=== PATIENT | female | born 1955 | race African-American/Black ===

== ENCOUNTER 2016-10-24 09:49 | Inpatient (IN) | payer OTHER ==
[~2016-10-24] VITALS: Ht 157.5 cm; Wt 63.5 kg
[~2016-10-24 09:49] MED LIST: ASPIRIN EC81 M1 PO; BETASERON0.3 M1 SC; CARBAMAZEPINE100 MG PO; COZAAR50 M1 PO; GABAPENTIN400 M2 PO; GABAPENTIN800 MG PO; GEMFIBROZIL600 MG PO; GLIPIZIDE ER10 MG PO; HYDROCHLOROTHIA25 M1 PO; LIORESAL 10MG T10 MG PO; LIPITOR10 M1 PO; METFORMIN HCL500 MG PO; METFORMIN1000 MG PO; OPANA ER40 M1 PO; OPANA ER40 MG PO; PERCOCET 325 MG1 TA2 PO; TRAMADOL HCL50 M1 PO; VICODIN5-300 PO; VITAMIN D250000 UNIT PO; ZOFRAN ODT4 M1 SL
--- NOTE | 2016-10-24 09:55 | NUR ---
61 Y/O FEMALE C/O "NOT FEELING WELL" X " A FEW DAYS". PT REPORTS GENERAL WEAKNESS, NAUSEA, DECREASED APPETITE/PO INTAKE AND DIARRHEA. STATES SHE HAS MS AND CURRENT SYMPTOMS FEEL SIMILIAR TO A FLARE UP. PT CLOSING EYES IN TRIAGE BUT RESPONDS TO QUESTIONS. STATES SHE IS JUST TIRED.
--- NOTE | 2016-10-24 10:03 | NUR ---
PT TO ROOM 2 VIA W/C. CHANGED INTO GOWN. ASSIST OF 2 TO STRETCHER. PT VERY WEAK. AWAITING EVAL. Informed waiting has been performed.
--- NOTE | 2016-10-24 10:08 | NUR ---
DR CALLE AT BEDSIDE.
[2016-10-24] MEDS ORDERED: BACLOFEN10 M1 PO (10:09)
[2016-10-24] MEDS ORDERED: CARBAMAZEPINE100 M2 PO (10:10)
[2016-10-24] MEDS ORDERED: METFORMIN HCL1000 M1 PO (10:11)
--- NOTE | 2016-10-24 10:44 | ED GENERAL ADULT ---
History of Present Illness General Chief Complaint: General Adult Stated Complaint: GEN WEAKNESS Source: patient, family, old records Exam Limitations: clinical condition Allergies Coded Allergies: NO KNOWN ALLERGIES (09/08/15) Reconcile Medications Aspirin (Ecotrin*) 81 MG TABLET.DR 1 TAB PO DAILY MENTAL HEALTH (Reported) Atorvastatin Calcium (Lipitor) 10 MG TABLET 1 TAB PO DAILY CHOLESTEROL ( Reported) Baclofen 10 MG TABLET 1 TAB PO QPM MUSCLE SPASMS (Reported) Carbamazepine 100 MG TAB.CHEW 1 TAB PO TID MS (Reported) Ergocalciferol (Vitamin D2) (Vitamin D2) 50,000 UNIT CAPSULE 1 CAP PO QMON SUPPLEMENT (Reported) Gabapentin 400 MG CAPSULE 1 CAP PO TID NERVE PAIN (Reported) Hydrochlorothiazide 25 MG TABLET 1 TAB PO DAILY DIURETIC (Reported) Interferon Beta-1b (Betaseron) (Unknown Strength) KIT (Unknown Dose) SC Q2W MS (Reported) Losartan Potassium (Cozaar) 50 MG TABLET 1 TAB PO DAILY HEART (Reported) Metformin HCl 1,000 MG TABLET 1 TAB PO BID DIABETES (Reported) Ondansetron (Zofran Odt) 4 MG TAB.RAPDIS 1 TAB SL TID PRN nausea Oxymorphone HCl (Opana ER) 40 MG TAB.ER.12H 1 TAB PO TID PRN PAIN (Reported) Tramadol HCl 50 MG TABLET 2 TAB PO Q6H PRN PAIN (Reported) Triage Note: 61 Y/O FEMALE C/O "NOT FEELING WELL" X " A FEW DAYS". PT REPORTS GENERAL WEAKNESS, NAUSEA, DECREASED APPETITE/PO INTAKE AND DIARRHEA. STATES SHE HAS MS AND CURRENT SYMPTOMS FEEL SIMILIAR TO A FLARE UP. PT CLOSING EYES IN TRIAGE BUT RESPONDS TO QUESTIONS. STATES SHE IS JUST TIRED. Triage Nurses Notes Reviewed? yes HPI: Ms Pike is a 61-year-old female with past medical history of multiple sclerosis, diabetes mellitus, hypertension, restless leg syndrome who presented to the emergency department this morning on 10/24/2016 after experiencing worsening diarrhea, vomiting, abdominal pain and a feeling of malaise and lethargy which initially began approximately 48 hours prior to admission. Patient's history was obtained from her daughter Celine who was at bedside. Patient was in normal state of health until 10/21/2016. She was subsequently scheduled to go and visit her neurologist on 10/23/2016 where she was scheduled to receive dose of steroids owing to multiple sclerosis. Patient was unable to attend this appointment to generalized weakness. Overnight the patient had 3 episodes of loose stools. She also had a feeling of nausea. This morning the patient's daughter called the home of Ms Pike and owing to decreased mentation brought the patient to the emergency department for further workup. Patient endorses abdominal pain. Rated a 7 out of 10 severity. Described sharp. Non radiating. She is alert although very drowsy. She denies any fever or chills. Primary care physician is Dr. Harkins. She last saw him three months ago. Patient cannot recall whether she took her medications last evening. (ALVA ALBERTO,[facility]) Vital Signs & Intake/Output Vital Signs & Intake/Output Vital Signs Date Time Temp Pulse Resp B/P B/P Pulse O2 O2 Flow FiO2 Mean Ox Delivery Rate 10/24 1801 92 148/92 10/24 1726 94 182/100 10/24 1700 94 16 182/100 98 Room Air Room Air 10/24 1557 99.0 91 16 162/90 97 Room Air 10/24 1528 82 172/90 10/24 1452 98.4 90 20 142/80 96 Room Air 10/24 1437 99.1 78 18 160/100 10/24 1425 160/100 10/24 1350 99.1 78 18 200/113 10/24 1341 99.1 98 20 204/113 97 Room Air 10/24 1141 97.2 104 20 195/99 98 Room Air 10/24 0954 96.6 117 18 188/98 97 Room Air Onset: 3 days Duration: day(s):, constant, continues in ED, getting worse Timing: recent history Injury Environment: home Severity: severe Modifying Factors: Improves With: rest. Worsens With: movement. LMP (ages 10-50): post menopausal : No Patient currently breastfeeds: No (LEAH ALBERTO,EV) Past History Travel History Traveled to [place] past 21 day No Medical History Neurological: multiple sclerosis, restless leg syndrome EENT: NONE Cardiovascular: hypertension Respiratory: NONE Gastrointestinal: NONE Hepatic: NONE Renal: INCREASED URINARY FREQUEN CY R/T MS Musculoskeletal: NONE Psychiatric: insomnia, INSOMNIA R/T RESTLESS LEG Endocrine: diabetes Blood Disorders: NONE Cancer(s): NONE RIGHT OF WAY CLEARER/Reproductive: NONE History of MRSA: No History of VRE: No History of CDIFF: No Surgical History Surgical History: non-contributory Psychosocial History Who do you live with Spouse Services at Home None What is your primary language Chinese Tobacco Use: Never used (RAI CALLE MD) Medical History Any Pertinent Medical History? see below for history Family History Hx Contributory? No (EV LYNN MD) Review of Systems Review of Systems Constitutional: Reports: malaise, weakness. Denies: chills, diaphoresis, fever. EENTM: Denies: blurred vision, double vision, visual changes, eye pain. Respiratory: Denies: cough, hemoptysis, orthopnea, short of breath, sputum production. Cardiovascular: Denies: chest pain, edema, orthopena, palpitations, peripheral edema. GI: Reports: abdominal pain, diarrhea, nausea, vomiting. Denies: bloating, constipation, distention, bowel incontinence, melena. Genitourinary: Denies: discharge, dysuria, frequency, hematuria, hesitation. Musculoskeletal: Denies: back pain, gout, joint pain, joint swelling, muscle pain. Skin: Denies: change in skin color, change in hair/nails, dryness. (RAI CALLE MD) Review of Systems Neurological/Psychological: Reports: see HPI, weakness. Hematologic/Endocrine: Reports: no symptoms. Immunologic/Allergic: Reports: no symptoms. All Other Systems: Reviewed and Negative (EV LYNN MD) Physical Exam Physical Exam General Appearance: no apparent distress, comfortable, lethargic Head: atraumatic, normal appearance Eyes: Bilateral: normal appearance, PERRL, EOMI. Ears, Nose, Throat: normal pharynx, normal ENT inspection, hearing grossly normal Neck: normal inspection Respiratory: normal breath sounds, chest non-tender, no respiratory distress Cardiovascular: regular rate/rhythm Peripheral Pulses: 3+ dorsalis pedis (R), 3+ dorsalis pedis (L) Gastrointestinal: soft, non-tender, Hypoactive BS+ Back: normal inspection, normal range of motion Extremities: normal inspection Neurologic/Psych: awake, store standards associate II-XII nml as tested, motor weakness Skin: intact, normal color (RAI CALLE MD) Core Measures ACS in differential dx? No CVA/TIA Diagnosis: No Severe Sepsis Present: No Septic Shock Present: No (EV LYNN MD) Progress Differential Diagnoses I considered the following diagnoses in my evaluation of the patient: Multiple Sclerosis Initial ED EKG: none (ALVA ALBERTO,RAI) Differential Diagnoses I considered the following diagnoses in my evaluation of the patient: Plan of Care: Orders Procedure Date/time Status CBC WITHOUT DIFFERENTIAL 10/25 0600 Active BASIC ELECTROLYTES PLUS BUN&CR 10/25 0600 Active Full Liquid Diet 10/24 D Active Patient Data 10/24 1659 Active Change service to 10/24 1508 Active Pathway - chart 10/24 1246 Active House Staff 10/24 1246 Active Patient Data 10/24 1246 Active EKG 10/24 1146 Active OXYGEN SETUP (GEN) 10/24 1142 Active Saline Lock 10/24 1142 Active Admit to inpatient 10/24 1142 Active Vital Signs 10/24 1142 Active Activity/Ambulation 10/24 1142 Active Code Status 10/24 1142 Active Add-on Test (ER Only) 10/24 1141 Active Add-on Test (ER Only) 10/24 1137 Active TEGRETOL LEVEL 10/24 1120 Complete MAGNESIUM 10/24 1120 Complete LIPID PANEL 10/24 1120 Complete GLYCOSYLATED HGB 10/24 1120 Complete Intake & Output 10/24 1043 Active URINALYSIS 10/24 1032 Complete LIPASE 10/24 1032 Complete COMPREHENSIVE METABOLIC PANEL 10/24 1032 Complete CBC WITHOUT DIFFERENTIAL 10/24 1032 Complete FingerStick- Glucose 10/24 1026 Active Lab Add-on Test 10/24 UNK Active VTE Mechanical Prophylaxis 10/24 UNK Active Telemetry/Child Custody Evaluator 10/24 UNK Active Current Medications Sig/Brittni Start time Last Medication Dose Stop Time Status Admin Atorvastatin Calcium 10 MG 1700 10/25 1700 AC (Lipitor) Aspirin Buffered 81 MG DAILY 10/25 1000 AC (Ecotrin) Enoxaparin Sodium 40 MG DAILY 10/25 1000 AC (Lovenox) Baclofen 10 MG QPM 10/24 2200 AC (Lioresal 10MG Tablet) Docusate Sodium 100 MG BID 10/24 2200 AC (Colace) Insulin Detemir 10 UNITS AT BEDTIME 10/24 2200 AC (Levemir) Insulin Aspart 0 TIDAC 10/24 1700 AC (NovoLOG) Carbamazepine 100 MG TID 10/24 1600 AC 10/24 (Tegretol) 1739 Gabapentin 400 MG TID 10/24 1600 AC 10/24 (Neurontin) 1739 Hydrochlorothiazide 25 MG DAILY 10/24 1540 AC 10/24 (Hydrodiuril) 1550 Sodium Chloride 1,000 ML Q10H 10/24 1345 AC 10/24 (Normal Saline 0.9%) 1337 Losartan Potassium 50 MG DAILY 10/24 1330 AC 10/24 (Cozaar) 1350 Tramadol HCl 100 MG Q6P PRN 10/24 1300 AC (Ultram) Acetaminophen 650 MG Q6P PRN 10/24 1245 AC (Tylenol) Acetaminophen 1,000 MG Q6P PRN 10/24 1245 AC (Ofirmev) Oxycodone HCl 10 MG Q6P PRN 10/24 1245 AC 10/24 (Roxicodone) 1739 Methylprednisolone 1,000 MG DAILY 10/24 1146 AC 10/24 (Solu Medrol) 10/28 1200 1220 Dextrose/Water 1,000 ML (D5W 1000) Laboratory Tests 10/24/16 1330: Urine Color YEL, Urine Clarity CLEAR, Urine pH 6.5, Ur Specific [place] 1.015, Urine Protein 100 H, Urine Ketones TRACE H, Urine Nitrite NEG, Urine Bilirubin NEG, Urine Urobilinogen 0.2, Ur Leukocyte Esterase NEG, Ur Microscopic SEDIMENT EXAMINED, Urine RBC 1-3, Urine WBC 1-3 H, Ur Epithelial Cells OCCAS, Urine Bacteria FEW H, Hyaline Casts RARE H, Urine Mucus RARE, Micro UA Comment CELLULAR CASTS H, Urine Hemoglobin SMALL H, Urine Glucose >=1000 H 10/24/16 1120: Anion Gap 16, Estimated GFR > 60, BUN/Creatinine Ratio 25.0, Glucose 351 H, Hemoglobin A1c 7.5 H, Calcium 9.3, Magnesium 1.6, Total Bilirubin 0.9, AST 19, ALT 36, Alkaline Phosphatase 90, Total Protein 7.7, Albumin 4.8, Globulin 2.9, Albumin/Globulin Ratio 1.7, Triglycerides 132, Cholesterol 169, LDL Cholesterol, Calc 87, HDL Cholesterol 56, Cholesterol/HDL Ratio 3, Lipase 706 H, Carbamazepine < 3.0 L 10/24/16 1040: CBC w Diff NO MAN DIFF REQ, RBC 5.92 H, MCV 81.4, MCH 26.3 L, RDW 14.6 H, MPV 8.1, Gran % 84.2 H, Lymphocytes % 9.0 L, Monocytes % 6.5, Eosinophils % 0, Basophils % 0.3, Absolute Granulocytes 11.9 H, Absolute Lymphocytes 1.3, Absolute Monocytes 0.9 H, Absolute Eosinophils 0, Absolute Basophils 0, PUBS MCHC 32.3 L Diagnostic Imaging: Viewed by Me: Radiology Read. Discussed w/RAD: Radiology Read. CXR Impression: no acute abnormality (EV LYNN MD) Departure Departure Disposition: STILL A PATIENT Condition: Fair Referrals: SAM HARKINS MD (PCP/Family) Departure Forms: Customer Survey General Discharge Information RELEASE- WORK for 2 days. May Return to Work today: No (Including today's visit) (RAI CALLE MD) Departure Clinical Impression Primary Impression: Exacerbation of multiple sclerosis Secondary Impressions: Dehydration syndrome Elevated lipase Hyperglycemia Leukocytosis Qualifiers: Leukocytosis type: unspecified Qualified Code: D72.829 - Elevated white blood cell count, unspecified Admission Note Spoke With: SAM HARKINS MD Documentation of Exam: Documentation of any treatments & extenuating circumstances including Concerns Regarding Discharge (functional status, medication knowledge or non-compliance, living conditions, etc.) that warrant an admission rather than observation: High -dose IV steroids IV fluids medication adjustment neurology evaluation endocrinology evaluation continuing care discharge planning Resident Co-Sign Statement Statement: ED Attending supervision documentation- x I saw and evaluated the patient. I have also reviewed all the pertinent lab results and diagnostic results. I agree with the findings and the plan of care as documented in the Resident's documentation. [] I have reviewed the ED Record and agree with the Resident's documentation. [] Additions or exceptions (if any) to the Resident's note and plan are summarized below: [] (EV LYNN MD) Critical Care Note Critical Care Note Critical Care Time: non-applicable (EV LYNN MD)
[2016-10-24 10:53] LABS: ABSOLUTE BASOPHIL COUNT 0 /CUMM (0.0-0.2); ABSOLUTE EOSINOPHIL COUNT 0 /CUMM (0.0-0.7); ABSOLUTE GRANULOCYTE CT 11.9 /CUMM (1.4-6.5); ABSOLUTE LYMPH COUNT 1.3 /CUMM (1.2-3.4); ABSOLUTE MONOCYTE COUNT 0.9 /CUMM (0.10-0.60); BASOPHIL % 0.3 % (0.0-2.0); EOSINOPHIL % 0 % (0-5); HEMATOCRIT 48.2 % (37-47); MEAN CORPUSCULAR HGB 26.3 PG (27.0-31.0); MEAN CORPUSCULAR HGB CONC 32.3 G/DL (33.0-37.0); MEAN CORPUSCULAR VOLUME 81.4 FL (81.0-99.0); MEAN PLATELET VOLUME 8.1 FL (7.4-10.4); PLATELET COUNT 371 /CUMM (130-400); RBC DISTRIBUTION WIDTH 14.6 % (11.5-14.5); RED BLOOD CELL CT 5.92 /CUMM (4.20-5.40); WHITE BLOOD CELL COUNT 14.1 /CUMM (4.8-10.8)
--- NOTE | 2016-10-24 10:53 | NUR ---
PT TO X-RAY
--- NOTE | 2016-10-24 11:02 | NUR ---
SST NEEDDS TO BE REDRAWN PER THE LAB, RN AWARE.
[2016-10-24 11:07] LABS: GRANULOCYTE % 84.2 % (42.2-75.2)
--- NOTE | 2016-10-24 11:14 | NUR ---
BACK FROM X-RAY
--- NOTE | 2016-10-24 11:20 | NUR ---
SST REDRAWN AND SENT.
--- NOTE | 2016-10-24 11:38 | RADIOLOGY REPORT ---
EXAMINATION: CHEST 2 VIEWS CLINICAL INFORMATION: Lethargy. Altered mental status. Concern for pneumonia. COMPARISON: 03/13/2016. TECHNIQUE: PA and lateral views of the chest were obtained. FINDINGS: The cardiac silhouette is not enlarged. The mediastinal and hilar contours are unremarkable. There are neither pleural effusions nor pneumothoraces. There are no consolidations. The osseous structures are unremarkable. IMPRESSION: No evidence for acute disease.
--- NOTE | 2016-10-24 11:48 | NUR ---
MEDICATED PER EMAR. PHARMACY CALLED FOR SOLUMEDROL, NEEDS TO BE MADE.
--- NOTE | 2016-10-24 12:42 | History & Physical ---
See Addendum General Information and HPI MD Statement: I have seen and personally examined MADI FARMER and documented this H&P. The patient is a 61 year old F who presented with a patient stated chief complaint of [WEAKNESS AND ABDOMINAL PAIN]. Source of Information: patient, family History of Present Illness: This is a 61 year-old female with past medical history of multiple sclerosis diagnosed 23 years back, type 2 diabetes, hypertension and dyslipidemia presented with chief complaint abdominal pain with mild generalized weakness. The patient was supposed to get IV steroids on 10/23/2016 for her MS exacerbation exacerbation as arranged by Dr. Bradford but the patient was too weak to make it to the appointment. Today she called her daughter found her very weak and nauseous. The patient has been complaining of persistent abdominal pain with loose watery diarrhea since last night. No fever or chills. She thinks it's stomach bg. She hasn't had any solid food for the last 2 days and has been sipping water and Gatorade. The patient denies any history of gallstones, any history of alcohol abuse or any recent abdominal trauma. She has been doing fine regarding her multiple sclerosis has been following up with Dr. Mccracken irregularly. Allergies/Medications Allergies: Coded Allergies: NO KNOWN ALLERGIES (09/08/15) Home Med list Aspirin (Ecotrin*) 81 MG TABLET.DR 1 TAB PO DAILY MENTAL HEALTH (Reported) Atorvastatin Calcium (Lipitor) 10 MG TABLET 1 TAB PO DAILY CHOLESTEROL ( Reported) Baclofen 10 MG TABLET 1 TAB PO QPM MUSCLE SPASMS (Reported) Carbamazepine 100 MG TAB.CHEW 1 TAB PO TID MS (Reported) Ergocalciferol (Vitamin D2) (Vitamin D2) 50,000 UNIT CAPSULE 1 CAP PO QMON SUPPLEMENT (Reported) Gabapentin 400 MG CAPSULE 1 CAP PO TID NERVE PAIN (Reported) Hydrochlorothiazide 25 MG TABLET 1 TAB PO DAILY DIURETIC (Reported) Interferon Beta-1b (Betaseron) (Unknown Strength) KIT (Unknown Dose) SC Q2W MS (Reported) Losartan Potassium (Cozaar) 50 MG TABLET 1 TAB PO DAILY HEART (Reported) Metformin HCl 1,000 MG TABLET 1 TAB PO BID DIABETES (Reported) Ondansetron (Zofran Odt) 4 MG TAB.RAPDIS 1 TAB SL TID PRN nausea Oxymorphone HCl (Opana ER) 40 MG TAB.ER.12H 1 TAB PO TID PRN PAIN (Reported) Tramadol HCl 50 MG TABLET 2 TAB PO Q6H PRN PAIN (Reported) Past History Travel History Traveled to [place] past 21 day No Medical History Neurological: multiple sclerosis, restless leg syndrome EENT: NONE Cardiovascular: hypertension Respiratory: NONE Gastrointestinal: NONE Hepatic: NONE Renal: INCREASED URINARY FREQUEN CY R/T MS Musculoskeletal: NONE Psychiatric: insomnia, INSOMNIA R/T RESTLESS LEG Endocrine: diabetes Blood Disorders: NONE Cancer(s): NONE RECORD PRODUCER/Reproductive: NONE History of MRSA: No History of VRE: No History of CDIFF: No Surgical History Surgical History: non-contributory Past Family/Social History Family History Relations & Conditions if any Relation not specified for: FH: diabetes in Psychosocial History Services at Home: None Review of Systems Review of Systems Constitutional: Reports: see HPI. EENTM: Reports: see HPI. Cardiovascular: Denies: chest pain, edema, orthopena. Respiratory: Denies: cough, hemoptysis, orthopnea. GI: Reports: diarrhea, distention. Denies: bowel incontinence, nausea, bloody stool. Genitourinary: Denies: dysuria, hesitation. Musculoskeletal: Denies: back pain, gout, joint pain, joint swelling. Skin: Denies: cysts, change in hair/nails, dryness, erythema. Hematologic/Endocrine: Denies: bruising, bleeding, polyuria. Exam & Diagnostic Data Last 24 Hrs of Vital Signs/I&O Vital Signs Date Time Temp Pulse Resp B/P B/P Pulse O2 O2 Flow FiO2 Mean Ox Delivery Rate 10/24 1141 97.2 104 20 195/99 98 Room Air 10/24 0954 96.6 117 18 188/98 97 Room Air Intake & Output 10/24 1600 10/24 0800 10/24 0000 Intake Total 1000 Output Total Balance 1000 Intake, IV 1000 Patient 140 lb Weight Weight Reported by Patient Measurement Method Physical Exam General Appearance Alert, Oriented X3, Cooperative Skin No Rashes Skin Temp/Moisture Exam: Warm/Dry HEENT Atraumatic, PERRLA, EOMI Neck Supple, No JVD, No thryomegaly Lymphatic Axillary nl, Cervical nl Cardiovascular Regular Rate, Normal S1, Normal S2 Lungs Clear to Auscultation, Normal Air Movement Abdomen mmild abdominal distention, tenderness on palpation. No peritoneal signs Assessment/Plan Assessment: This is a 61-year-old female with a past medical history of multiple sclerosis, hypertension, hyperlipidemia who presented to the hospital with abdominal pain, nausea and generalized weakness which she attributes as MS exacerbation Vitals at the time of admission shows Blood pressure 188/98, respiration rate of 19, saturation of 97% on room air, pulse rate of 117 Afebrile Labs 1. WBC of 14,000, hematocrit of 48, creatinine of 0.8, glucose of 394, BUNs of 20, lipase 703 Assessment 1. Acute multiple sclerosis exacerbation 2. Acute abdominal pain with diarrhea in the setting of elevated lipase the differential could be acute viral diarrhea versus acute pancreatitis. In this case the suspicion of appendicitis is low as the patient did not have any previous episodes of pancreatitis in the past and does not have any significant risk factors for pancreatitis but elevated lipase can be secondary to dehydration versus acute pancreatitis 3. Leukocytosis and elevated hematocrit: Most likely secondary to dehydration and volume depletion/contraction 4. Hypertensive urgency in the setting of history of hypertension 5. History of diabetes mellitus with elevated glucose level in the absence of an anion gap 6. History of hyperlipidemia on statin 7. New eveidence of Cellular casts in the urine. Plan Admit to TELEMETRY floor for htn urgency. IV Solu-Medrol 1 mg every -5doses For the suspicion of acute pancreatitis we will do abdominal CAT scan without contrast IV normal saline, patient received 2 L of normal saline bolus in the emergency department We will start her on ns at 100 mL per hour Repeat CBC, basilar panel in the morning Stop hydrochlorothiazide and the suspicion of acute pancreatitis but if the CAT scan is normal he can resume hydrochlorothiazide Give losartan 50 mg as the patient did not take her home medications if the blood pressure still persistently high we can give one dose of IV labetalol 5 mg. If the patient blood pressure is still persistently elevated we can change the transposition to TELEMETRY FLOOR Do not drop BP >25% in first 24 hrs EKG telemetry Nothing by mouth until a CAT scan results and after that fULL liquid diet and advance as as tolerated TTE FOR EVLUATAION OF LVH NovoLog sliding scale(o.o1 units/kg) and stop metformin Will also start on Levemir 10 (o.2 units/kg)units at bedtime Pain pathway and tramadol. dvt ppx s/q lovenox fc As Ranked By This Provider Problem List: 1. Hyperglycemia 2. Multiple episodes of hypoglycemia 3. Exacerbation of multiple sclerosis Core Measures/Miscellaneous Acute Coronary Syndrome ACS Diagnosis: No Cerebrovascular Accident CVA/TIA Diagnosis: No Congestive Heart Failure CHF Diagnosis: No Venous Thromboembolism VTE Risk Factors: Acute medical illness, Age > 40 [facility] prophylaxis d/t: No contraindications No VTE Pharm Prophylaxis d/t: No contraindications VTE Diagnosis: No VTE Type: NONE VTE Confirmed by (Test): NONE Severe Sepsis Severe Sepsis Present: No Septic Shock Septic Shock Present: No Miscellaneous Documentation Attending Case Discussed With: DR POND Primary Care Physician: SAM POND MD Patient sees these Specialists NONE Level of Patient Care: Telemetry
--- NOTE | 2016-10-24 12:46 | NUR ---
PT UP TO COMMODE TO VOID WITH ASSIST OF 1. PT PUT TOILET PAPER IN COMMODE, UNABLE TO OBTAIN UA AT THIS TIME.
--- NOTE | 2016-10-24 13:04 | NUR ---
PT TO CAT SCAN
--- NOTE | 2016-10-24 13:17 | NUR ---
BACK FROM CAT SCAN
--- NOTE | 2016-10-24 13:23 | CT SCAN REPORT ---
EXAMINATION: CT ABDOMEN AND PELVIS WITHOUT CONTRAST CLINICAL INFORMATION: Pancreatitis. Persistent nausea and vomiting. COMPARISON: 02/26/2010. TECHNIQUE: Contiguous axial thin section helical images of the abdomen and pelvis were performed without oral or IV contrast. The data set was reformatted in the coronal and sagittal planes and reviewed on an independent workstation. DLP: 254 mGy-cm. FINDINGS: There is mild dependent bibasilar atelectasis. The visualized lung bases are otherwise clear. The visualized portions of the heart are unremarkable. The liver is of normal size and attenuation without focal lesions nor intrahepatic biliary ductal dilation. A normal gallbladder is identified. There is no wall thickening or discernible pericholecystic fluid. The spleen, pancreas, adrenal glands are unremarkable. Both kidneys are of normal size and attenuation without hydronephrosis or nephrolithiasis. There is no abdominal free fluid. There is neither mesenteric nor retroperitoneal lymphadenopathy. Normal unopacified loops of small and large bowel are identified. There is no pelvic free fluid. The urinary bladder is unremarkable. There is neither pelvic nor inguinal lymphadenopathy. Bone windows: Neither sclerotic nor lytic bone lesions are identified. IMPRESSION: No evidence for acute abdominal or pelvic inflammatory or infectious processes.
--- NOTE | 2016-10-24 13:30 | NUR ---
URINE TRIO SENT.
--- NOTE | 2016-10-24 13:41 | NUR ---
REPORT TO ALINA CANNON ON 2NA.
--- NOTE | 2016-10-24 13:58 | NUR ---
OOB TO COMMODE WITH ASSISTANCE, VOIDED SMALL AMOUNT.
--- NOTE | 2016-10-24 14:18 | NUR ---
PT GOING TO ROOM 229-1.
--- NOTE | 2016-10-24 14:58 | NUR ---
UPDATED DYLON ON 2NA OF PT'S BP S/P LABETALOL. DYLON STATES PT NEEDS TO BE MONITORED FOR A WHILE BEFORE PT CAN GO TO GEN MED. DYLON STATED SHE WOULD CALL DR HAMILTON #[id number] TO CLARIFY.
--- NOTE | 2016-10-24 15:05 | NUR ---
REPORT TAKEN FROM DAVIS BOURGEOIS, ASSUMING CARE
--- NOTE | 2016-10-24 15:09 | NUR ---
CRITICAL TEST RESULTS [id number] MADI FARMER 61 F TESTS AND RESULTS: RARE CELLULAR CASTS IN URINE Results received and read back by: CHRISTELLE OLSON Results received date and time: 10/24/16 1510 The following provider was notified of the results, and read the results back: DR HAMILTON Notified date and time: 10/24/16 at 1510
--- NOTE | 2016-10-24 15:10 | NUR ---
DR HAMILTON STATES OK FOR PT TO STILL GO TO GEN MED S/P LABETALOL IVP.
--- NOTE | 2016-10-24 15:12 | NUR ---
PT ASSIGNED ROOM 229 BED 1.
--- NOTE | 2016-10-24 15:42 | NUR ---
PER DR. HAMILTON, PT IS TO RECEIVE 25MG HCTZ NOW AND IS APPROPRIATE FOR TRANSFER TO GENERAL MEDICINE FLOOR
--- NOTE | 2016-10-24 17:45 | NUR ---
PT ADMITTED TO ROOM 179-2
--- NOTE | 2016-10-24 18:25 | NUR ---
DAUGHTER (URSULA) WOULD LIKE TO BE UPDATED ON POC AND RESULTS:
[2016-10-24 18:59] VITALS: BP 130/70
[2016-10-24 22:00] VITALS: BP 124/84
--- NOTE | 2016-10-25 06:09 | PN- Housestaff ---
Subjective Follow-up For: MS exacerbation Tele-Events Since Last Visit: ST-NSR with HR 93-105 Subjective: Patient seen and examined at bedside. Resting comfortably in bed. She enorses headache which she regularly has at home. Would like to take hydrocodone which usually works for her. Reprots much improvement in her abdominal pain. Denies any dyspnea, chest pain, palpitations, lightheadedness, dizziness, abdominal pain, n/v/c/d. No acute events reported overnight. Review of Systems Constitutional: Reports: see HPI. Objective Last 24 Hrs of Vital Signs/I&O Vital Signs Date Time Temp Pulse Resp B/P B/P Pulse O2 O2 Flow FiO2 Mean Ox Delivery Rate 10/25 0613 99.8 10/24 2212 100.3 10/24 2200 100.3 97 18 124/84 95 Room Air 10/24 1859 99.9 95 20 130/70 97 10/24 1801 92 148/92 10/24 1726 94 182/100 10/24 1700 94 16 182/100 98 Room Air Room Air 10/24 1557 99.0 91 16 162/90 97 Room Air 10/24 1528 82 172/90 10/24 1452 98.4 90 20 142/80 96 Room Air 10/24 1437 99.1 78 18 160/100 10/24 1425 160/100 10/24 1350 99.1 78 18 200/113 10/24 1341 99.1 98 20 204/113 97 Room Air 10/24 1141 97.2 104 20 195/99 98 Room Air 10/24 0954 96.6 117 18 188/98 97 Room Air Intake & Output 10/25 1600 10/25 0800 10/25 0000 Intake Total 600 350 Output Total 350 Balance 600 0 Intake, IV 600 150 Intake, Oral 0 200 Number 0 0 Bowel Movements Output, Urine 350 Patient 63.503 kg Weight Weight Estimated Measurement Method Physical Exam General Appearance: Alert, Oriented X3, Cooperative, No Acute Distress Other Physical Findings: Skin No Rashes Skin Temp/Moisture Exam: Warm/Dry HEENT Atraumatic, PERRLA, EOMI Neck Supple, No JVD, No thryomegaly Lymphatic Axillary nl, Cervical nl Cardiovascular Regular Rate, Normal S1, Normal S2 Lungs Clear to Auscultation, Normal Air Movement Abdomen No tenderness on palpation. No peritoneal signs Current Medications: Current Medications Sig/Brittni Start time Last Medication Dose Route Stop Time Status Admin Acetaminophen 650 MG Q6P PRN 10/24 1245 AC 10/24 PO 2212 Acetaminophen 1,000 MG Q6P PRN 10/24 1245 AC IV Acetaminophen/ 15 ML Q6P PRN 10/25 0830 AC Hydrocodone Bitart PO Aspirin Buffered 81 MG DAILY 10/25 1000 AC PO Atorvastatin Calcium 10 MG 1700 10/25 1700 AC PO Baclofen 10 MG QPM 10/24 2200 AC 10/24 PO 2212 Carbamazepine 100 MG TID 10/24 1600 AC 10/24 PO 2212 Docusate Sodium 100 MG BID 10/24 2200 AC 10/24 PO 2212 Enoxaparin Sodium 40 MG DAILY 10/25 1000 AC SC Gabapentin 400 MG TID 10/24 1600 AC 10/24 PO 2212 Hydrochlorothiazide 25 MG DAILY 10/24 1540 AC 10/24 PO 1550 Insulin Aspart 0 TIDAC 10/24 1700 AC 10/24 SC 1825 Insulin Aspart 4 UNITS ONCE ONE 10/24 1115 DC 10/24 SC 10/24 1116 1121 Insulin Detemir 10 UNITS AT BEDTIME 10/24 2200 10/24 SC 2213 Labetalol HCl 5 MG ONCE ONE 10/24 1700 DC 10/24 IV 10/24 1701 1726 Labetalol HCl 0 .STK-MED ONE 10/24 1434 DC IV Labetalol HCl 5 MG ONCE ONE 10/24 1430 DC 10/24 IV 10/24 1431 1437 Losartan Potassium 50 MG DAILY 10/24 1330 10/24 PO 1350 Methylprednisolone 1,000 MG DAILY 10/24 1146 AC 10/24 Dextrose/Water 1,000 ML IV 10/28 1200 1220 Ondansetron HCl 0 .STK-MED ONE 10/24 1150 DC .ROUTE Ondansetron HCl 4 MG ONCE ONE 10/24 1145 DC 10/24 IV 10/24 1146 1148 Oxycodone HCl 0 .STK-MED ONE 10/24 1734 DC PO Oxycodone HCl 10 MG Q6P PRN 10/24 1245 AC 10/25 PO 0613 Sodium Chloride 1,000 ML Q10H 10/24 1345 AC 10/24 IV 1337 Sodium Chloride 1,000 ML Q13H 10/24 1300 DC 10/24 IV 1330 Sodium Chloride 1,000 ML BOLUS ONE 10/24 1045 DC 10/24 IV 10/24 1144 1043 Tramadol HCl 100 MG Q6P PRN 10/24 1300 AC PO Last 24 Hrs of Lab/Danis Results Last 24 Hrs of Labs/Mics: Laboratory Tests 10/25/16 0625: Sodium Pending, Potassium Pending, Chloride Pending, Carbon Dioxide Pending, Anion Gap Pending, BUN Pending, Creatinine Pending, BUN/Creatinine Ratio Pending , Lipase Pending, CBC w Diff NO MAN DIFF REQ, RBC 5.31, MCV 82.2, MCH 26.7 L, RDW 14.6 H, MPV 8.4, Gran % 82.1 H, Lymphocytes % 9.7 L, Monocytes % 8.0, Eosinophils % 0, Basophils % 0.2, Absolute Granulocytes 12.4 H, Absolute Lymphocytes 1.5, Absolute Monocytes 1.2 H, Absolute Eosinophils 0, Absolute Basophils 0, PUBS MCHC 32.5 L 10/24/16 1330: Ur Eosinophil Smear 10/24/16 1330: Urine Color YEL, Urine Clarity CLEAR, Urine pH 6.5, Ur Specific [place] 1.015, Urine Protein 100 H, Urine Ketones TRACE H, Urine Nitrite NEG, Urine Bilirubin NEG, Urine Urobilinogen 0.2, Ur Leukocyte Esterase NEG, Ur Microscopic SEDIMENT EXAMINED, Urine RBC 1-3, Urine WBC 1-3 H, Ur Epithelial Cells OCCAS, Urine Bacteria FEW H, Hyaline Casts RARE H, Urine Mucus RARE, Micro UA Comment CELLULAR CASTS H, Urine Hemoglobin SMALL H, Urine Glucose >=1000 H 10/24/16 1120: Anion Gap 16, Estimated GFR > 60, BUN/Creatinine Ratio 25.0, Glucose 351 H, Hemoglobin A1c 7.5 H, Calcium 9.3, Magnesium 1.6, Total Bilirubin 0.9, AST 19, ALT 36, Alkaline Phosphatase 90, Total Protein 7.7, Albumin 4.8, Globulin 2.9, Albumin/Globulin Ratio 1.7, Triglycerides 132, Cholesterol 169, LDL Cholesterol, Calc 87, HDL Cholesterol 56, Cholesterol/HDL Ratio 3, Lipase 706 H, Carbamazepine < 3.0 L 10/24/16 1040: CBC w Diff NO MAN DIFF REQ, RBC 5.92 H, MCV 81.4, MCH 26.3 L, RDW 14.6 H, MPV 8.1, Gran % 84.2 H, Lymphocytes % 9.0 L, Monocytes % 6.5, Eosinophils % 0, Basophils % 0.3, Absolute Granulocytes 11.9 H, Absolute Lymphocytes 1.3, Absolute Monocytes 0.9 H, Absolute Eosinophils 0, Absolute Basophils 0, PUBS MCHC 32.3 L Assessment/Plan Assessment: This is a 61-year-old female with a past medical history of multiple sclerosis, hypertension, hyperlipidemia who presented to the hospital with abdominal pain, nausea and generalized weakness which she attributes as MS exacerbation. 1. Acute multiple sclerosis exacerbation 2. Acute abdominal pain with diarrhea most likely 2/2 viral gastroenteritis. Although she has elevated lipase CT abd negative for pancreatitis. 3. Leukocytosis and elevated hematocrit: Most likely secondary to dehydration and volume depletion/contraction 4. Hypertensive urgency in the setting of history of hypertension - RESOLVED 5. History of diabetes mellitus with elevated glucose level in the absence of an anion gap 6. History of hyperlipidemia on statin 7. New eveidence of Cellular casts in the urine. Plan * Patient remains HDS, may consider discontinuing tele * IV Solu-Medrol 1 mg daily -5doses * Gentle IV hydration * Check CBC daily, trend WBC & H/H * Cont Cozaar and HCTZ at home doses * If HTN, give one dose of IV labetalol 5 mg. * Follow echocardiogram * NovoLog sliding scale(o.o1 units/kg) and stop metformin * Cont on Levemir 10 (o.2 units/kg)units at bedtime - Diabetic diet - Mild pain pathway - DVTppx with Lovenox - Full code. Problem List: 1. Benign essential hypertension 2. Diabetes mellitus 3. Elevated lipase 4. Leukocytosis 5. Hyperglycemia 6. Dehydration syndrome 7. Acute viral syndrome 8. Exacerbation of multiple sclerosis Pain Ratin Pain Location: Abdomen Headache Pain Goal: Pain 4 or less Pain Plan: Mild pathway Tomorrow's Labs & Rationales: CBC BEP
[2016-10-25 07:50] LABS: ABSOLUTE BASOPHIL COUNT 0 /CUMM (0.0-0.2); ABSOLUTE EOSINOPHIL COUNT 0 /CUMM (0.0-0.7); ABSOLUTE GRANULOCYTE CT 12.4 /CUMM (1.4-6.5); ABSOLUTE LYMPH COUNT 1.5 /CUMM (1.2-3.4); ABSOLUTE MONOCYTE COUNT 1.2 /CUMM (0.10-0.60); BASOPHIL % 0.2 % (0.0-2.0); EOSINOPHIL % 0 % (0-5); GRANULOCYTE % 82.1 % (42.2-75.2); HEMATOCRIT 43.7 % (37-47); MEAN CORPUSCULAR HGB 26.7 PG (27.0-31.0); MEAN CORPUSCULAR HGB CONC 32.5 G/DL (33.0-37.0); MEAN CORPUSCULAR VOLUME 82.2 FL (81.0-99.0); MEAN PLATELET VOLUME 8.4 FL (7.4-10.4); PLATELET COUNT 313 /CUMM (130-400); RBC DISTRIBUTION WIDTH 14.6 % (11.5-14.5); RED BLOOD CELL CT 5.31 /CUMM (4.20-5.40); WHITE BLOOD CELL COUNT 15.1 /CUMM (4.8-10.8)
[2016-10-25 08:52] VITALS: BP 158/90
--- NOTE | 2016-10-25 12:15 | Admission Certification ---
Admission Certification Certification Statement - As attending physician, I certify that at the time of - admission, based on clinical presentation, severity of - symptoms, need for further diagnostic testing and - therapeutic interventions, and risk of adverse outcomes - without in-hospital treatment, in my clinical assessment, - this patient requires an acute hospital stay for a minimum - of two nights or longer. I have also considered psychsocial - factors such as support system, advanced age, financial - issues, cognitive issues, and failed out-patient treatments, - past re-admission history, safety of patient, and lack of - compliance as applicable. Specific rationale supporting this admission is: Exacerbation of her multiple sclerosis, hypertensive crisis and abdominal pain
--- NOTE | 2016-10-25 12:18 | PN- Att Addend ---
Attending Addendum Attending Brief Note 61-year-old black female with known history of multiple sclerosis, not feeling well for a couple of days even missed her appointment with MS specialist. Feeling weak nausea and poor appetite, emergency room her blood pressure is elevated her sugars are little elevated to. Patient will be admitted to telemetry the hypertension will be addressed with abdominal pain really worked up and will be treated for an MS exacerbation with follow-up by Christopher Mccloud MD I saw the patient the next morning her abdominal pain is improved , to blood pressures improved, receiving IV steroids for her MS exacerbation. Checking her CAT scan of the abdomen Intake & Output 10/25 1600 10/25 0800 10/25 0000 Intake Total 600 350 Output Total 350 Balance 600 0 Intake, IV 600 150 Intake, Oral 0 200 Number 0 0 Bowel Movements Output, Urine 350 Patient 140 lb Weight Weight Estimated Measurement Method Current Medications Sig/Brittni Start time Last Medication Dose Route Stop Time Status Admin Acetaminophen 650 MG Q6P PRN 10/24 1245 AC 10/24 PO 2212 Acetaminophen 1,000 MG Q6P PRN 10/24 1245 AC IV Acetaminophen/ 15 ML Q6P PRN 10/25 0830 AC Hydrocodone Bitart PO Aspirin Buffered 81 MG DAILY 10/25 1000 AC 10/25 PO 0849 Atorvastatin Calcium 10 MG 1700 10/25 1700 AC PO Baclofen 10 MG QPM 10/24 2200 AC 10/24 PO 2212 Carbamazepine 100 MG TID 10/24 1600 AC 10/25 PO 0848 Docusate Sodium 100 MG BID 10/24 2200 AC 10/25 PO 0849 Enoxaparin Sodium 40 MG DAILY 10/25 1000 AC 10/25 SC 0849 Gabapentin 400 MG TID 10/24 1600 AC 10/25 PO 0850 Hydrochlorothiazide 25 MG DAILY 10/24 1540 AC 10/25 PO 0849 Insulin Aspart 0 TIDAC 10/24 1700 AC 10/25 SC 0848 Insulin Detemir 10 UNITS AT BEDTIME 10/24 2200 AC 10/24 SC 2213 Labetalol HCl 5 MG ONCE ONE 10/24 1700 DC 10/24 IV 10/24 1701 1726 Labetalol HCl 0 .STK-MED ONE 10/24 1434 DC IV Labetalol HCl 5 MG ONCE ONE 10/24 1430 DC 10/24 IV 10/24 1431 1437 Losartan Potassium 50 MG DAILY 10/24 1330 AC 10/25 PO 0849 Magnesium Chloride 64 MG BID 10/25 1000 AC PO 10/25 2201 Methylprednisolone 1,000 MG DAILY 10/24 1146 AC 10/25 Dextrose/Water 1,000 ML IV 10/28 1200 0848 Oxycodone HCl 0 .STK-MED ONE 10/24 1734 DC PO Oxycodone HCl 10 MG Q6P PRN 10/24 1245 AC 10/25 PO 0613 Potassium Chloride 20 MEQ ONCE ONE 10/25 1500 AC PO 10/25 1501 Potassium Chloride 40 MEQ ONCE ONE 10/25 0930 DC PO 10/25 0931 Sodium Chloride 1,000 ML Q10H 10/24 1345 AC 10/24 IV 1337 Sodium Chloride 1,000 ML Q13H 10/24 1300 DC 10/24 IV 1330 Tramadol HCl 100 MG Q6P PRN 10/24 1300 AC 10/25 PO 0848 Laboratory Tests 10/25/16 0625: Anion Gap 15, Estimated GFR > 60, BUN/Creatinine Ratio 26.7 H, Lipase 415 H, CBC w Diff NO MAN DIFF REQ, RBC 5.31, MCV 82.2, MCH 26.7 L, RDW 14.6 H, MPV 8.4, Gran % 82.1 H, Lymphocytes % 9.7 L, Monocytes % 8.0, Eosinophils % 0, Basophils % 0.2, Absolute Granulocytes 12.4 H, Absolute Lymphocytes 1.5, Absolute Monocytes 1.2 H, Absolute Eosinophils 0, Absolute Basophils 0, PUBS MCHC 32.5 L 10/24/16 1330: Ur Eosinophil Smear 10/24/16 1330: Urine Color YEL, Urine Clarity CLEAR, Urine pH 6.5, Ur Specific [place] 1.015, Urine Protein 100 H, Urine Ketones TRACE H, Urine Nitrite NEG, Urine Bilirubin NEG, Urine Urobilinogen 0.2, Ur Leukocyte Esterase NEG, Ur Microscopic SEDIMENT EXAMINED, Urine RBC 1-3, Urine WBC 1-3 H, Ur Epithelial Cells OCCAS, Urine Bacteria FEW H, Hyaline Casts RARE H, Urine Mucus RARE, Micro UA Comment CELLULAR CASTS H, Urine Hemoglobin SMALL H, Urine Glucose >=1000 H 10/24/16 1120: Anion Gap 16, Estimated GFR > 60, BUN/Creatinine Ratio 25.0, Glucose 351 H, Hemoglobin A1c 7.5 H, Calcium 9.3, Magnesium 1.6, Total Bilirubin 0.9, AST 19, ALT 36, Alkaline Phosphatase 90, Total Protein 7.7, Albumin 4.8, Globulin 2.9, Albumin/Globulin Ratio 1.7, Triglycerides 132, Cholesterol 169, LDL Cholesterol, Calc 87, HDL Cholesterol 56, Cholesterol/HDL Ratio 3, Lipase 706 H, Carbamazepine < 3.0 L 10/24/16 1040: CBC w Diff NO MAN DIFF REQ, RBC 5.92 H, MCV 81.4, MCH 26.3 L, RDW 14.6 H, MPV 8.1, Gran % 84.2 H, Lymphocytes % 9.0 L, Monocytes % 6.5, Eosinophils % 0, Basophils % 0.3, Absolute Granulocytes 11.9 H, Absolute Lymphocytes 1.3, Absolute Monocytes 0.9 H, Absolute Eosinophils 0, Absolute Basophils 0, PUBS MCHC 32.3 L Replace potassium.
[2016-10-25 16:01] VITALS: BP 132/80
[2016-10-25 22:15] VITALS: BP 122/70
--- NOTE | 2016-10-26 06:06 | PN- Housestaff ---
Subjective Follow-up For: MS exacerbation Tele-Events Since Last Visit: Off tele Subjective: Patient seen and examined at bedside. She continues to have headache and abdominal pain but under control with the current pain regimen. She c/o nausea and poor appetite. Also she hasn't moved her bowels in 2 days and would like to take something additional for constipation. Denies any dyspnea, chest pain, palpitations, lightheadedness, dizziness, abdominal pain. No acute events reported overnight. Review of Systems Constitutional: Reports: see HPI. Objective Last 24 Hrs of Vital Signs/I&O Vital Signs Date Time Temp Pulse Resp B/P B/P Pulse O2 O2 Flow FiO2 Mean Ox Delivery Rate 10/26 0836 99.5 63 20 134/80 96 10/26 0059 99.2 10/25 2215 99.7 88 22 122/70 95 Room Air 10/25 1601 99.7 86 20 132/80 94 Room Air Intake & Output 10/26 1600 10/26 0800 10/26 0000 Intake Total 840 1080 Output Total Balance 840 1080 Intake, IV 600 600 Intake, Oral 240 480 Physical Exam General Appearance: Alert, Oriented X3, Cooperative, No Acute Distress Other Physical Findings: Skin No Rashes Skin Temp/Moisture Exam: Warm/Dry HEENT Atraumatic, PERRLA, EOMI Neck Supple, No JVD, No thryomegaly Lymphatic Axillary nl, Cervical nl Cardiovascular Regular Rate, Normal S1, Normal S2 Lungs Clear to Auscultation, Normal Air Movement Abdomen No tenderness on palpation. No peritoneal signs Current Medications: Current Medications Sig/Brittni Start time Last Medication Dose Route Stop Time Status Admin Acetaminophen 650 MG Q6P PRN 10/24 1245 AC 10/24 PO 2212 Acetaminophen 1,000 MG Q6P PRN 10/24 1245 AC IV Acetaminophen/ 1 TAB Q6P PRN 10/26 0915 UNVr Hydrocodone Bitart PO Acetaminophen/ 1 TAB Q6P PRN 10/26 0900 DCr Hydrocodone Bitart PO Acetaminophen/ 15 ML Q6P PRN 10/25 0830 DC 10/26 [place] PO 0743 Aspirin Buffered 81 MG DAILY 10/25 1000 AC 10/25 PO 0849 Atorvastatin Calcium 10 MG 1700 10/25 1700 AC 10/25 PO 1651 Baclofen 10 MG QPM 10/24 2200 AC 10/25 PO 2101 Carbamazepine 100 MG TID 10/24 1600 AC 10/25 PO 2101 Docusate Sodium 100 MG BID 10/24 2200 AC 10/25 PO 210 Enoxaparin Sodium 40 MG DAILY 10/25 1000 AC 10/25 SC 0849 Gabapentin 400 MG TID 10/24 1600 AC 10/25 PO 2101 Hydrochlorothiazide 25 MG DAILY 10/24 1540 AC 10/25 PO 0849 Insulin Aspart 0 TIDAC 10/24 1700 AC 10/25 SC 1655 Insulin Detemir 10 UNITS AT BEDTIME 10/24 2200 AC 10/25 SC 2101 Losartan Potassium 50 MG DAILY 10/24 1330 AC 10/25 PO 0849 Magnesium Chloride 64 MG BID 10/25 1000 DC 10/25 PO 10/25 2200 210 Methylprednisolone 1,000 MG DAILY 10/24 1146 AC 10/25 Dextrose/Water 1,000 ML IV 10/28 1200 0848 Ondansetron HCl 4 MG ONCE ONE 10/25 2145 DC 10/25 IV 10/25 2146 2142 Oxycodone HCl 10 MG Q6P PRN 10/24 1245 AC 10/25 PO 210 Patient Medication 1 ED .STK-MED ONE 10/25 1353 DC Teaching ED 10/25 1354 Potassium Chloride 20 MEQ ONCE ONE 10/25 1500 DC 10/25 PO 10/25 1501 1651 Potassium Chloride 40 MEQ ONCE ONE 10/25 0930 DC 10/25 PO 10/25 0931 1216 Senna/Docusate Sodium 1 TAB BID PRN 10/26 0900 UNVr PO Simethicone 80 MG Q6P PRN 10/26 0915 UNVr PO Sodium Chloride 1,000 ML Q10H 10/24 1345 AC 10/26 IV 0611 Tramadol HCl 100 MG Q6P PRN 10/24 1300 AC 10/25 PO 0848 Last 24 Hrs of Lab/Danis Results Last 24 Hrs of Labs/Mics: Laboratory Tests 10/26/16 0635: Anion Gap 12, Estimated GFR > 60, BUN/Creatinine Ratio 28.9 H, Magnesium 2.2, CBC w Diff NO MAN DIFF REQ, RBC 4.67, MCV 82.1, MCH 26.7 L, RDW 14.8 H, MPV 8.5, Gran % 80.3 H, Lymphocytes % 12.7 L, Monocytes % 6.9, Eosinophils % 0, Basophils % 0.1, Absolute Granulocytes 12.0 H, Absolute Lymphocytes 1.9, Absolute Monocytes 1.0 H, Absolute Eosinophils 0, Absolute Basophils 0, PUBS MCHC 32.5 L Assessment/Plan Assessment: This is a 61-year-old female with a past medical history of multiple sclerosis, hypertension, hyperlipidemia who presented to the hospital with abdominal pain, nausea and generalized weakness which she attributes as MS exacerbation. 1. Acute multiple sclerosis exacerbation 2. Acute abdominal pain with diarrhea most likely 2/2 viral gastroenteritis. Although she has elevated lipase CT abd negative for pancreatitis. 3. Leukocytosis and elevated hematocrit: Most likely secondary to dehydration and volume depletion/contraction 4. Hypertensive urgency in the setting of history of hypertension - RESOLVED 5. History of diabetes mellitus with elevated glucose level in the absence of an anion gap 6. History of hyperlipidemia on statin 7. New eveidence of Cellular casts in the urine. Plan * Patient remains HDS, may consider discontinuing tele * IV Solu-Medrol 1 mg daily -compete 5 doses * Discontinue IVF * Check CBC daily, trend WBC & H/H * Cont Cozaar and HCTZ at home doses * If HTN, give one dose of IV labetalol 5 mg. * Follow echocardiogram * NovoLog sliding scale(o.o1 units/kg) and stop metformin * Cont on Levemir 10 (o.2 units/kg) units at bedtime * IV Zofran PRN for nausea * Vicodin Q6P for headache * Dr. Bradford informed, awaiting recs - Diabetic diet - Mild pain pathway - DVTppx with Lovenox - Full code. Problem List: 1. Exacerbation of multiple sclerosis Pain Ratin Pain Location: Head Abdmen Pain Goal: Pain 4 or less Pain Plan: Mild pathway Tomorrow's Labs & Rationales: CBC for leukocytosis
[2016-10-26 08:01] LABS: ABSOLUTE BASOPHIL COUNT 0 /CUMM (0.0-0.2); ABSOLUTE EOSINOPHIL COUNT 0 /CUMM (0.0-0.7); ABSOLUTE LYMPH COUNT 1.9 /CUMM (1.2-3.4); BASOPHIL % 0.1 % (0.0-2.0); EOSINOPHIL % 0 % (0-5); GRANULOCYTE % 80.3 % (42.2-75.2); MEAN CORPUSCULAR HGB 26.7 PG (27.0-31.0); MEAN CORPUSCULAR HGB CONC 32.5 G/DL (33.0-37.0); MEAN CORPUSCULAR VOLUME 82.1 FL (81.0-99.0); MEAN PLATELET VOLUME 8.5 FL (7.4-10.4); PLATELET COUNT 289 /CUMM (130-400); RBC DISTRIBUTION WIDTH 14.8 % (11.5-14.5); RED BLOOD CELL CT 4.67 /CUMM (4.20-5.40)
[2016-10-26 08:29] LABS: HEMATOCRIT 38.3 % (37-47)
[2016-10-26 08:36] VITALS: BP 134/80
--- NOTE | 2016-10-26 09:01 | ECHOCARDIOGRAM REPORT ---
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 Normal left ventricular diastolic filling pattern for age. The ejection fraction is visually estimated at 65%. Right Ventricle The right ventricle is normal in size and function. Right Atrium The right atrium is normal in size. Left Atrium The left atrium is normal in size. The interatrial septum is intact. Mitral Valve The mitral valve is normal in structure and function. There is no mitral regurgitation. Aortic Valve Structurally normal aortic valve without significant sclerosis or stenosis. There is no aortic regurgitation. Tricuspid Valve The tricuspid valve is normal in structure and function. There is no tricuspid regurgitation. Pulmonary artery systolic pressure is normal. Pulmonic Valve Structurally normal pulmonic valve. There is no pulmonic regurgitation. Pericardium Normal pericardium without effusion. No pleural effusion. Great Vessels Normal aortic root dimension. The aortic arch and great vessels are well seen and are normal. CONCLUSIONS 1. Normal EF of 65%. Oliver Pinzon M.D. (Electronically Signed) Final Date: 26 Oct 2016 09:01 MEASUREMENTS (Male / Female) Normal Values 2D ECHO LV Diastolic Diameter PLAX 4.2 cm 4.2 - 5.9 / 3.9 - 5.3 cm LV Systolic Diameter PLAX 2.7 cm 2.1 - 4.0 cm LV Fractional Shortening PLAX 35.7 % 25 - 46 % LV Ejection Fraction 2D Teich 65.6 % IVS Diastolic Thickness 1.0 cm LVPW Diastolic Thickness 0.9 cm LV Relative Wall Thickness 0.5 RV Internal Dim ED PLAX 2.7 cm 1.9 - 3.8 cm LVOT Diameter 1.7 cm Aortic Root Diameter 2.4 cm LA Systolic Diameter LX 3.0 cm 3.0 - 4.0 / 2.7 - 3.8 cm LA Volume 21.0 cm 18 - 58 / 22 - 52 cm Ascending Aorta Diameter 3.1 cm DOPPLER AV Peak Velocity 150.0 cm/s AV Peak Gradient 9.0 mmHg AV Mean Velocity 106.0 cm/s AV Mean Gradient 5.0 mmHg AV Velocity Time Integral 34.6 cm LVOT Peak Velocity 69.2 cm/s LVOT Peak Gradient 1.9 mmHg LVOT Mean Velocity 41.1 cm/s LVOT Mean Gradient 1.0 mmHg LVOT Velocity Time Integral 16.8 cm LVOT Stroke Volume 38.1 cm AV Area Cont Eq vti 1.1 cm AV Area Cont Eq pk 1.0 cm MV Peak Velocity 88.2 cm/s MV Peak Gradient 3.1 mmHg MV Mean Velocity 56.5 cm/s MV Mean Gradient 1.0 mmHg Mitral E Point Velocity 58.7 cm/s Mitral A Point Velocity 62.2 cm/s Mitral E to A Ratio 0.9 MV PHT Velocity 77.4 cm/s MV Deceleration Cotton 254.0 cm/s MV Pressure Half Time 91.4 ms MV Area PHT 2.4 cm MV Deceleration Time 451.0 ms PV Peak Velocity 101.0 cm/s PV Peak Gradient 4.1 mmHg PV Mean Velocity 61.1 cm/s PV Mean Gradient 2.0 mmHg PV Velocity Time Integral 20.9 cm LV E' Lateral Velocity 9.3 cm/s Mitral E to LV E' Lateral Ratio 6.3 LV E' Septal Velocity 6.0 cm/s Mitral E to LV E' Septal Ratio 9.7
--- NOTE | 2016-10-26 13:59 | Patient Discharge Instructions ---
Discharge Instructions General Discharge Information You were seen/treated for: Multiple sclerosis exacerbation Special Instructions: Please follow up with neurologist Dr. Mccloud, endcrinologist Dr. Smith and prim care provider Dr. Harkins within 1-2 weeks of discharge. Diet Continue normal diet: Yes Recommended Diet: Diabetic Activity Full Activity/No Limits: Yes (as tolerated) Acute Coronary Syndrome Inclusion Criteria At DC or during hospital stay patient has or had the following: ACS DIAGNOSIS No Discharge Core Measures Meds if any: Prescribed or Continued at Discharge Meds if any: NOT Prescribed or Continued at Discharge Congestive Heart Failure Inclusion Criteria At DC or during hospital stay patient has or had the following: CHF DIAGNOSIS No Discharge Core Measures Meds if any: Prescribed or Continued at Discharge Meds if any: NOT Prescribed or Continued at Discharge Cerebrovascular accident Inclusion Criteria At DC or during hospital stay patient has or had the following: CVA/TIA Diagnosis No Discharge Core Measures Meds if any: Prescribed or Continued at Discharge Meds if any: NOT Prescribed or Continued at Discharge Venous thromboembolism Inclusion Criteria VTE Diagnosis No VTE Type NONE VTE Confirmed by (Test) NONE Discharge Core Measures - Per Current guidelines, there needs to be overlap - treatment for the first 5 days of Warfarin therapy. - If discharged on Warfarin prior to 5 days of - overlap therapy, the patient will need to be - assessed for post discharge needs including - *Post discharge parental anticoagulation - *Warfarin and/or parental anticoagulation education - *Follow up date to check INR post discharge At least 5 days overlap therapy as Inpatient No Meds if any: Prescribed or Continued at Discharge Note: Overlap Therapy is Warfarin and Anticoagulant Meds if any: NOT Prescribed or Continued at Discharge
--- NOTE | 2016-10-26 15:12 | Event Note ---
Event Note Event Note: Discussed with the patient's neurologist Dr. Mccloud about the patient's treatment for MS exacerbation. Since the patient has improved neurologically with regard to generalized weakness and headache, Dr. Mccloud recommended that the patient come off Solumedrol 1g daily as she continues to have severe abdominal pain which could be secondary to steroid use. As such patient will be monitored off steroid for now.
[2016-10-26 16:43] VITALS: BP 116/64
--- NOTE | 2016-10-26 18:37 | PN- Att Addend ---
Attending Addendum Attending Brief Note Patient still having some abdominal pain. And receiving IV steroids for her exacerbation of her multiple sclerosis trying to get in touch with Dr. Mccloud, for his recommendations apparently the resident got in touch with him and gave recommendations to discontinue the IV steroids and monitor her abdominal pain. The physical therapy evaluation to check for safety at home. Current Medications Sig/Brittni Start time Last Medication Dose Route Stop Time Status Admin Acetaminophen 650 MG Q6P PRN 10/24 1245 AC 10/24 PO 2212 Acetaminophen 1,000 MG Q6P PRN 10/24 1245 AC IV Acetaminophen/ 1 TAB Q6P PRN 10/26 0915 AC Hydrocodone Bitart PO Acetaminophen/ 1 TAB Q6P PRN 10/26 0900 DC Hydrocodone Bitart PO Acetaminophen/ 15 ML Q6P PRN 10/25 0830 DC 10/26 Hydrocodone Bitart PO 0743 Aspirin Buffered 81 MG DAILY 10/25 1000 AC 10/26 PO 1008 Atorvastatin Calcium 10 MG 1700 10/25 1700 AC 10/26 PO 1617 Baclofen 10 MG QPM 10/24 2200 AC 10/25 PO 2101 Bisacodyl 10 MG ONCE ONE 10/26 1400 CAN [place] 10/26 1401 Carbamazepine 100 MG TID 10/24 1600 AC 10/26 PO 1617 Docusate Sodium 100 MG BID 10/24 2200 DC 10/26 PO 1008 Enoxaparin Sodium 40 MG DAILY 10/25 1000 AC 10/26 SC 1008 Gabapentin 400 MG TID 10/24 1600 AC 10/26 PO 1617 Hydrochlorothiazide 25 MG DAILY 10/24 1540 AC 10/26 PO 1008 Insulin Aspart 0 TIDAC 10/24 1700 AC 10/26 SC 1755 Insulin Detemir 10 UNITS AT BEDTIME 10/24 2200 AC 10/25 SC 2101 Losartan Potassium 50 MG DAILY 10/24 1330 AC 10/26 PO 1008 Magnesium Chloride 64 MG BID 10/25 1000 DC 10/25 PO 10/25 220 2102 Methylprednisolone 1,000 MG DAILY 10/24 1146 DC 10/26 Dextrose/Water 1,000 ML IV 10/28 1200 1117 Omeprazole 40 MG DAILY AC 10/26 1338 AC 10/26 PO 1352 Ondansetron HCl 4 MG Q6P PRN 10/26 0915 AC 05 IV 0914 Ondansetron HCl 4 MG ONCE ONE 10/25 2144 DC 10/25 IV 10/25 Oxycodone HCl 10 MG Q6P PRN 10/24 1245 AC 10/26 PO 1352 Polyethylene Glycol 17 GM DAILY 10/27 1000 AC PO Polyethylene Glycol 17 GM DAILY 10/26 1350 DC PO Potassium Chloride 10 MEQ ONCE ONE 10/26 0915 DC 10/26 PO 10/26 0916 1008 Senna/Docusate Sodium 1 TAB BID 10/26 2200 AC PO Senna/Docusate Sodium 1 TAB BID PRN 10/26 0900 AC 10/26 PO 10/26 2159 1011 Simethicone 80 MG Q8 10/26 1400 AC 10/26 PO 1352 Simethicone 80 MG Q6P PRN 10/26 0915 DC PO Sodium Chloride 1,000 ML Q10H 10/24 1345 AC 10/26 IV 0611 Tramadol HCl 100 MG Q6P PRN 10/24 1300 AC 10/25 PO 0848 Laboratory Tests 10/26/16 0635: Anion Gap 12, Estimated GFR > 60, BUN/Creatinine Ratio 28.9 H, Magnesium 2.2, CBC w Diff NO MAN DIFF REQ, RBC 4.67, MCV 82.1, MCH 26.7 L, RDW 14.8 H, MPV 8.5, Gran % 80.3 H, Lymphocytes % 12.7 L, Monocytes % 6.9, Eosinophils % 0, Basophils % 0.1, Absolute Granulocytes 12.0 H, Absolute Lymphocytes 1.9, Absolute Monocytes 1.0 H, Absolute Eosinophils 0, Absolute Basophils 0, PUBS MCHC 32.5 L Vital Signs Date Time Temp Pulse Resp B/P B/P Pulse O2 O2 Flow FiO2 Mean Ox Delivery Rate 10/26 1643 99.3 85 18 116/64 95 Intake & Output 10/26 1600 Intake Total 480 Output Total Balance 480 Intake, Oral 480 Also follow-up the white count.
[2016-10-27 01:16] VITALS: BP 120/60
[2016-10-27 08:00] VITALS: BP 148/70
--- NOTE | 2016-10-27 08:19 | PN- Housestaff ---
Subjective Follow-up For: MS exacerbation Abdominal pain Tele-Events Since Last Visit: Off tele Subjective: Patient seen and examined at bedside. Reports much improvement in abdominal pain today. She still feels very weak though. No BM yet. Will ask for a suppository if she changes her mind. Denies any dyspnea, chest pain, palpitations, lightheadedness, dizziness. No acute events reported overnight. Review of Systems Constitutional: Reports: see HPI. Objective Last 24 Hrs of Vital Signs/I&O Vital Signs Date Time Temp Pulse Resp B/P B/P Pulse O2 O2 Flow FiO2 Mean Ox Delivery Rate 10/27 0116 98.5 63 18 120/60 100 Room Air 10/26 1643 99.3 85 18 116/64 95 10/26 1008 63 134/80 10/26 0836 99.5 63 20 134/80 96 Intake & Output 10/27 1600 10/27 0800 10/27 0000 Intake Total 950 Output Total 1800 Balance -850 Intake, IV 600 Intake, Oral 350 Output, Urine 1800 Physical Exam General Appearance: Alert, Oriented X3, Cooperative, No Acute Distress Other Physical Findings: Skin No Rashes Skin Temp/Moisture Exam: Warm/Dry HEENT Atraumatic, PERRLA, EOMI Neck Supple, No JVD, No thryomegaly Lymphatic Axillary nl, Cervical nl Cardiovascular Regular Rate, Normal S1, Normal S2 Lungs Clear to Auscultation, Normal Air Movement Abdomen No tenderness on palpation. No peritoneal signs Current Medications: Current Medications Sig/Brittni Start time Last Medication Dose Route Stop Time Status Admin Acetaminophen 650 MG Q6P PRN 10/24 1245 AC 10/24 PO 2212 Acetaminophen 1,000 MG Q6P PRN 10/24 1245 AC IV Acetaminophen/ 1 TAB Q6P PRN 10/26 0915 AC 10/27 Hydrocodone Bitart PO 0639 Acetaminophen/ 1 TAB Q6P PRN 10/26 0900 DC Hydrocodone Bitart PO Acetaminophen/ 15 ML Q6P PRN 10/25 0830 DC 10/26 Hydrocodone Bitart PO 0743 Aspirin Buffered 81 MG DAILY 10/25 1000 AC 10/26 PO 1008 Atorvastatin Calcium 10 MG 1700 10/25 1700 AC 10/26 PO 1617 Baclofen 10 MG QPM 10/24 2200 AC 10/26 PO 2115 Bisacodyl 10 MG ONCE ONE 10/26 1400 CAN [place] 10/26 1401 Carbamazepine 100 MG TID 10/24 1600 AC 10/26 PO 2115 Docusate Sodium 100 MG BID 10/24 2200 DC 10/26 PO 1008 Enoxaparin Sodium 40 MG DAILY 10/25 1000 AC 10/26 SC 1008 Gabapentin 400 MG TID 10/24 1600 AC 10/26 PO 2115 Hydrochlorothiazide 25 MG DAILY 10/24 1540 AC 10/26 PO 1008 Insulin Aspart 0 TIDAC 10/24 1700 AC 10/27 SC 0823 Insulin Detemir 10 UNITS AT BEDTIME 10/24 2200 AC 10/26 SC 2126 Losartan Potassium 50 MG DAILY 10/24 1330 AC 10/26 PO 1008 Methylprednisolone 1,000 MG DAILY 10/24 1146 DC 10/26 Dextrose/Water 1,000 ML IV 10/28 1200 1117 Omeprazole 40 MG DAILY AC 10/26 1338 AC 10/27 PO 0634 Ondansetron HCl 4 MG Q6P PRN 10/26 0915 AC 10/26 IV 0914 Oxycodone HCl 10 MG Q6P PRN 10/24 1245 AC 10/26 PO 1352 Polyethylene Glycol 17 GM DAILY 10/27 1000 AC PO Polyethylene Glycol 17 GM DAILY 10/26 1350 DC PO Potassium Chloride 10 MEQ ONCE ONE 10/26 0915 DC 10/26 PO 10/26 0916 1008 Senna/Docusate Sodium 1 TAB BID 10/26 2200 AC 10/26 PO 2117 Senna/Docusate Sodium 1 TAB BID PRN 10/26 0900 DC 10/26 PO 10/26 2159 1011 Simethicone 80 MG Q8 10/26 1400 AC 10/27 PO 0634 Simethicone 80 MG Q6P PRN 10/26 0915 DC PO Sodium Chloride 1,000 ML Q10H 10/24 1345 AC 10/27 IV 0631 Tramadol HCl 100 MG Q6P PRN 10/24 1300 AC 10/25 PO 0848 Last 24 Hrs of Lab/Danis Results Last 24 Hrs of Labs/Mics: Laboratory Tests 10/27/16 0737: CBC w Diff Pending, WBC Pending, RBC Pending, Hgb Pending, Hct Pending, MCV Pending, MCH Pending, RDW Pending, Plt Count Pending, MPV Pending, PUBS MCHC Pending Assessment/Plan Assessment: This is a 61-year-old female with a past medical history of multiple sclerosis, hypertension, hyperlipidemia who presented to the hospital with abdominal pain, nausea and generalized weakness which she attributes as MS exacerbation. 1. Acute multiple sclerosis exacerbation 2. Acute abdominal pain with diarrhea most likely 2/2 viral gastroenteritis. Although she has elevated lipase CT abd negative for pancreatitis. 3. Leukocytosis and elevated hematocrit: Most likely secondary to dehydration and volume depletion/contraction 4. Hypertensive urgency in the setting of history of hypertension - RESOLVED 5. History of diabetes mellitus with elevated glucose level in the absence of an anion gap 6. History of hyperlipidemia on statin 7. New eveidence of Cellular casts in the urine. Plan * Patient remains HDS, may consider discontinuing tele * Monitor off IV Solu-Medrol 1 mg daily as this could cause gastrotis * Cont PPI which was started this admission * Check CBC daily, trend WBC & H/H * Cont Cozaar and HCTZ at home doses * If HTN, give one dose of IV labetalol 5 mg. * Follow echocardiogram - grossly normal * NovoLog sliding scale(o.o1 units/kg) and stop metformin * Cont on Levemir 10 (o.2 units/kg) units at bedtime * IV Zofran PRN for nausea * Vicodin Q6P for headache * Dr. Bradford informed, awaiting recs - Diabetic diet - Mild pain pathway - DVTppx with Lovenox - Full code. Problem List: 1. Diabetes mellitus 2. Diabetic peripheral neuropathy 3. Dyslipidemia 4. Multiple sclerosis 5. Elevated lipase 6. Dehydration syndrome 7. Acute viral syndrome 8. Exacerbation of multiple sclerosis 9. Weakness Pain Ratin Pain Location: Abdomen Pain Goal: Pain 4 or less Pain Plan: Mild pathway Tomorrow's Labs & Rationales: CBC, BEP CBC, BEP
[2016-10-27 08:53] LABS: ABSOLUTE BASOPHIL COUNT 0.1 /CUMM (0.0-0.2); ABSOLUTE EOSINOPHIL COUNT 0 /CUMM (0.0-0.7); ABSOLUTE GRANULOCYTE CT 7.7 /CUMM (1.4-6.5); ABSOLUTE LYMPH COUNT 2.2 /CUMM (1.2-3.4); ABSOLUTE MONOCYTE COUNT 0.9 /CUMM (0.10-0.60); BASOPHIL % 0.5 % (0.0-2.0); EOSINOPHIL % 0 % (0-5); GRANULOCYTE % 71.2 % (42.2-75.2); HEMATOCRIT 36.6 % (37-47); MEAN CORPUSCULAR HGB 27.3 PG (27.0-31.0); MEAN CORPUSCULAR VOLUME 82.7 FL (81.0-99.0); MEAN PLATELET VOLUME 8.4 FL (7.4-10.4); PLATELET COUNT 254 /CUMM (130-400); RBC DISTRIBUTION WIDTH 14.6 % (11.5-14.5); RED BLOOD CELL CT 4.43 /CUMM (4.20-5.40); WHITE BLOOD CELL COUNT 10.8 /CUMM (4.8-10.8)
--- NOTE | 2016-10-27 11:36 | PN- Att Addend ---
Attending Addendum Attending Brief Note Patient reports improvement in abdominal pain however she complains of generalized weakness General Appearance: Alert, No Acute Distress Skin: Grossly normal HEENT: PEERLA Neck: Supple, No JVD Cardiovascular: Regular Rate, Normal S1, Normal S2, No Murmurs Lungs: Clear to Auscultation, Normal Air Movement Abdomen: Epigastric pain Neurological: Lower extremity weakness Assessment MS exacerbation and not tolerating high-dose steroids secondary to gastritis and abdominal pain. Abdominal pain has improved on discontinuing Solu-Medrol. We will get physical therapy and at this point follow her off steroids. Plan Continue PPI Continue other home medication PT evaluation for disposition DVT prophylaxis Current Medications Sig/Brittni Start time Last Medication Dose Route Stop Time Status Admin Acetaminophen 650 MG Q6P PRN 10/24 1245 AC 10/24 PO 2212 Acetaminophen 1,000 MG Q6P PRN 10/24 1245 AC IV Acetaminophen/ 1 TAB Q6P PRN 10/26 0915 AC 10/27 Hydrocodone Bitart PO 0639 Aspirin Buffered 81 MG DAILY 10/25 1000 AC 10/27 PO 0952 Atorvastatin Calcium 10 MG 1700 10/25 1700 AC 10/26 PO 1617 Baclofen 10 MG QPM 10/24 2200 AC 10/26 PO 2115 Bisacodyl 10 MG ONCE ONE 10/26 1400 CAN [place] 10/26 1401 Carbamazepine 100 MG TID 10/24 1600 AC 10/27 PO 0952 Docusate Sodium 100 MG BID 10/24 2200 DC 10/26 PO 1008 Enoxaparin Sodium 40 MG DAILY 10/25 1000 AC 10/27 SC 0953 Gabapentin 400 MG TID 10/24 1600 AC 10/27 PO 0952 Hydrochlorothiazide 25 MG DAILY 10/24 1540 AC 10/27 PO 0952 Insulin Aspart 0 TIDAC 10/24 1700 AC 10/27 SC 0823 Insulin Detemir 10 UNITS AT BEDTIME 10/24 2200 AC 10/26 SC 2126 Losartan Potassium 50 MG DAILY 10/24 1330 AC 10/27 PO 0952 Methylprednisolone 1,000 MG DAILY 10/24 1146 DC 10/26 Dextrose/Water 1,000 ML IV 10/28 1200 1117 Omeprazole 40 MG DAILY AC 10/26 1338 AC 10/27 PO 0634 Ondansetron HCl 4 MG Q6P PRN 10/26 0915 AC 10/26 IV 0914 Oxycodone HCl 10 MG Q6P PRN 10/24 1245 AC 10/26 PO 1352 Polyethylene Glycol 17 GM DAILY 10/27 1000 AC 10/27 PO 0953 Polyethylene Glycol 17 GM DAILY 10/26 1350 DC PO Senna/Docusate Sodium 1 TAB BID 10/26 2200 AC 10/27 PO 0952 Senna/Docusate Sodium 1 TAB BID PRN 10/26 0900 DC 10/26 PO 10/26 2159 1011 Simethicone 80 MG Q8 10/26 1400 AC 10/27 PO 0634 Simethicone 80 MG Q6P PRN 10/26 0915 DC PO Sodium Chloride 1,000 ML Q10H 10/24 1345 AC 10/27 IV 0631 Tramadol HCl 100 MG Q6P PRN 10/24 1300 AC 10/25 PO 0848 Laboratory Tests 10/27 0737 Hematology CBC w Diff NO MAN DIFF REQ WBC (4.8 - 10.8 /CUMM) 10.8 RBC (4.20 - 5.40 /CUMM) 4.43 Hgb (12.0 - 16.0 G/DL) 12.1 Hct (37 - 47 %) 36.6 L MCV (81.0 - 99.0 FL) 82.7 MCH (27.0 - 31.0 PG) 27.3 RDW (11.5 - 14.5 %) 14.6 H Plt Count (130 - 400 /CUMM) 254 MPV (7.4 - 10.4 FL) 8.4 Gran % (42.2 - 75.2 %) 71.2 Lymphocytes % (20.5 - 51.1 %) 19.9 L Monocytes % (1.7 - 9.3 %) 8.4 Eosinophils % (0 - 5 %) 0 Basophils % (0.0 - 2.0 %) 0.5 Absolute Granulocytes (1.4 - 6.5 /CUMM) 7.7 H Absolute Lymphocytes (1.2 - 3.4 /CUMM) 2.2 Absolute Monocytes (0.10 - 0.60 /CUMM) 0.9 H Absolute Eosinophils (0.0 - 0.7 /CUMM) 0 Absolute Basophils (0.0 - 0.2 /CUMM) 0.1 PUBS MCHC (33.0 - 37.0 G/DL) 33.0 Vital Signs Date Time Temp Pulse Resp B/P B/P Pulse O2 O2 Flow FiO2 Mean Ox Delivery Rate 10/27 0952 55 148/70 10/27 0800 Room Air 10/27 0800 98.7 55 20 148/70 95 Room Air 10/27 0116 98.5 63 18 120/60 100 Room Air 10/26 1643 99.3 85 18 116/64 95
[2016-10-27 16:23] VITALS: BP 124/66
[2016-10-27 23:00] VITALS: BP 110/64
[2016-10-28 08:04] VITALS: BP 124/78
--- NOTE | 2016-10-28 09:11 | PN- Housestaff ---
Subjective Follow-up For: MS OLMSTEAD Tele-Events Since Last Visit: off tele Subjective: Patient seen and examined at bedside. Reports slight improvement in abdominal pain but still complains of constipation and reports no BM for a week and is requesting a suppository. Denies any dyspnea, chest pain, palpitations, lightheadedness, dizziness. No acute events reported overnight. Review of Systems Constitutional: Reports: see HPI. Objective Last 24 Hrs of Vital Signs/I&O Vital Signs Date Time Temp Pulse Resp B/P B/P Pulse O2 O2 Flow FiO2 Mean Ox Delivery Rate 10/28 0927 126/74 10/28 0804 99.1 56 18 124/78 96 Room Air 10/27 2300 97.9 62 18 110/64 95 Room Air 10/27 1623 98.7 58 16 124/66 98 Intake & Output 10/28 1600 10/28 0800 10/28 0000 Intake Total 250 1830 Output Total 800 Balance 250 1030 Intake, IV 0 700 Intake, Oral 250 1130 Number 0 Bowel Movements Output, Urine 800 Physical Exam General Appearance: Alert, Oriented X3, Cooperative Other Physical Findings: Other Physical Findings: Skin No Rashes Skin Temp/Moisture Exam: Warm/Dry HEENT Atraumatic, PERRLA, EOMI Neck Supple, No JVD, No thryomegaly Lymphatic Axillary nl, Cervical nl Cardiovascular Regular Rate, Normal S1, Normal S2 Lungs Clear to Auscultation, Normal Air Movement Abdomen No tenderness on palpation. No peritoneal signs Current Medications: Current Medications Sig/Brittni Start time Last Medication Dose Route Stop Time Status Admin Acetaminophen 650 MG Q6P PRN 10/24 1245 AC 10/24 PO 2212 Acetaminophen 1,000 MG Q6P PRN 10/24 1245 AC IV Acetaminophen/ 1 TAB Q6P PRN 10/26 0915 AC 10/27 Hydrocodone Bitart PO 0639 Aspirin Buffered 81 MG DAILY 10/25 1000 AC 10/28 PO 0925 Atorvastatin Calcium 10 MG 1700 10/25 1700 AC 10/27 PO 1600 Baclofen 10 MG QPM 10/24 2200 AC 10/27 PO 2104 Bisacodyl 5 MG ONE ONE 10/28 1230 DC PO 10/28 1231 Bisacodyl 10 MG ONCE ONE 10/28 1230 DC LA 10/28 1231 Carbamazepine 100 MG TID 10/24 1600 AC 10/28 PO 0925 Enoxaparin Sodium 40 MG DAILY 10/25 1000 AC 10/28 SC 0925 Gabapentin 400 MG TID 10/24 1600 AC 10/28 PO 0925 Hydrochlorothiazide 25 MG DAILY 10/24 1540 AC 10/28 PO 0927 Insulin Aspart 0 TIDAC 10/24 1700 AC 10/28 SC 1233 Insulin Detemir 10 UNITS AT BEDTIME 10/24 2200 AC 10/27 SC 2104 Losartan Potassium 50 MG DAILY 10/24 1330 AC 10/28 PO 0927 Omeprazole 40 MG DAILY AC 10/26 1338 AC 10/28 PO 0640 Ondansetron HCl 4 MG Q6P PRN 10/26 0915 AC 10/26 IV 0914 Oxycodone HCl 10 MG Q6P PRN 10/24 1245 AC 10/28 PO 0640 Polyethylene Glycol 17 GM DAILY PRN 10/28 1130 AC PO Polyethylene Glycol 17 GM DAILY 10/27 1000 AC 10/28 PO 0925 Senna/Docusate Sodium 1 TAB BID PRN 10/28 1130 AC PO Senna/Docusate Sodium 1 TAB BID 10/26 2200 AC 10/28 PO 0925 Simethicone 80 MG Q8 10/26 1400 AC 10/28 PO 0640 Sodium Chloride 1,000 ML Q10H 10/24 1345 DC 10/27 IV 0631 Sodium Phosphate 1 UNIT ONCE ONE 10/28 1130 DC [place] 10/28 1131 Tramadol HCl 100 MG Q6P PRN 10/24 1300 AC 10/25 PO 0848 Assessment/Plan Assessment: This is a 61-year-old female with a past medical history of multiple sclerosis, hypertension, hyperlipidemia who presented to the hospital with abdominal pain, nausea and generalized weakness which she attributes as MS exacerbation. 1. Acute multiple sclerosis exacerbation 2. Acute abdominal pain with diarrhea most likely 2/2 viral gastroenteritis. Although she has elevated lipase CT abd negative for pancreatitis. 3. Leukocytosis and elevated hematocrit: Most likely secondary to dehydration and volume depletion/contraction 4. Hypertensive urgency in the setting of history of hypertension - RESOLVED 5. History of diabetes mellitus with elevated glucose level in the absence of an anion gap 6. History of hyperlipidemia on statin 7. New eveidence of Cellular casts in the urine. Plan Off Telemetry. Will continue to manage without steroids due to possible cause of gastric pain Will give Dulcolax po and PRN as it his highly likely patient abdominal pain is from conctipation (no BM for awhile) Will continue PPI wILL continue all home meds for her chronic condition Pt still feels tired and looks week, not stable for discharge. - Diabetic diet - Mild pain pathway - DVTppx with Lovenox - Full code. Problem List: 1. Exacerbation of multiple sclerosis Pain Ratin Pain Location: abdominal pain Pain Goal: Pain 4 or less Pain Plan: suppository for abdominal pain Tomorrow's Labs & Rationales: BEP
--- NOTE | 2016-10-28 12:03 | PN- Att Addend ---
Attending Addendum Attending Brief Note Patient reports improvement in abdominal pain however she complains of generalized weakness and last bowel movement 6 days back. General Appearance: Alert, No Acute Distress Skin: Grossly normal HEENT: PEERLA Neck: Supple, No JVD Cardiovascular: Regular Rate, Normal S1, Normal S2, No Murmurs Lungs: Clear to Auscultation, Normal Air Movement Abdomen: Epigastric pain Neurological: Lower extremity weakness Assessment MS exacerbation and not tolerating high-dose steroids secondary to gastritis and abdominal pain. Abdominal pain has improved on discontinuing Solu-Medrol. Her last bowel movement was 6 days back. It is possible abdominal discomfort probably is secondary to constipation. Plan Give enemas If no bowel movement get x-ray abdomen Continue PPI Continue other home medication DVT prophylaxis Current Medications Sig/Brittni Start time Last Medication Dose Route Stop Time Status Admin Acetaminophen 650 MG Q6P PRN 10/24 1245 AC 10/24 PO 2212 Acetaminophen 1,000 MG Q6P PRN 10/24 1245 AC IV Acetaminophen/ 1 TAB Q6P PRN 10/26 0915 AC 10/27 Hydrocodone Bitart PO 0639 Aspirin Buffered 81 MG DAILY 10/25 1000 AC 10/28 PO 0925 Atorvastatin Calcium 10 MG 1700 10/25 1700 AC 10/27 PO 1600 Baclofen 10 MG QPM 10/24 2200 AC 10/27 PO 2104 Carbamazepine 100 MG TID 10/24 1600 AC 10/28 PO 0925 Enoxaparin Sodium 40 MG DAILY 10/25 1000 AC 10/28 SC 0925 Gabapentin 400 MG TID 10/24 1600 AC 10/28 PO 0925 Hydrochlorothiazide 25 MG DAILY 10/24 1540 AC 10/28 PO 0927 Insulin Aspart 0 TIDAC 10/24 1700 AC 10/27 SC 1722 Insulin Detemir 10 UNITS AT BEDTIME 10/24 2200 AC 10/27 SC 2104 Losartan Potassium 50 MG DAILY 10/24 1330 AC 10/28 PO 0927 Omeprazole 40 MG DAILY AC 10/26 1338 AC 10/28 PO 0640 Ondansetron HCl 4 MG Q6P PRN 10/26 0915 AC 10/26 IV 0914 Oxycodone HCl 10 MG Q6P PRN 10/24 1245 AC 10/28 PO 0640 Polyethylene Glycol 17 GM DAILY PRN 10/28 1130 AC PO Polyethylene Glycol 17 GM DAILY 10/27 1000 AC 10/28 PO 0925 Potassium Chloride 10 MEQ ONCE ONE 10/27 1300 DC 10/27 PO 10/27 1301 1411 Senna/Docusate Sodium 1 TAB BID PRN 10/28 1130 AC PO Senna/Docusate Sodium 1 TAB BID 10/26 2200 AC 10/28 PO 0925 Simethicone 80 MG Q8 10/26 1400 AC 10/28 PO 0640 Sodium Chloride 1,000 ML Q10H 10/24 1345 DC 10/27 IV 0631 Sodium Phosphate 1 UNIT ONCE ONE 10/28 1130 DC [place] 10/28 1131 Tramadol HCl 100 MG Q6P PRN 10/24 1300 AC 10/25 PO 0848 Vital Signs Date Time Temp Pulse Resp B/P B/P Pulse O2 O2 Flow FiO2 Mean Ox Delivery Rate 10/28 0927 126/74 10/28 0804 99.1 56 18 124/78 96 Room Air 10/27 2300 97.9 62 18 110/64 95 Room Air 10/27 1623 98.7 58 16 124/66 98
[2016-10-28 17:56] VITALS: BP 124/70
[2016-10-28 23:00] VITALS: BP 118/60
--- NOTE | 2016-10-29 06:31 | PN- Housestaff ---
Subjective Follow-up For: MS exacerbation Subjective: Patient seen and examined at bedside. Reports feeling much better today and feels ready for discharge. Denies any dyspnea, chest pain, palpitations, lightheadedness, dizziness. No acute events reported overnight. Review of Systems Constitutional: Reports: see HPI. Objective Last 24 Hrs of Vital Signs/I&O Vital Signs Date Time Temp Pulse Resp B/P B/P Pulse O2 O2 Flow FiO2 Mean Ox Delivery Rate 10/29 1020 104/66 10/29 0752 68.0 58 18 98/66 93 10/28 2300 98.5 74 18 118/60 96 Room Air 10/28 1756 98.3 72 18 124/70 97 Room Air Intake & Output 10/29 1600 10/29 0800 10/29 0000 Intake Total 350 800 Output Total Balance 350 800 Intake, IV 0 Intake, Oral 350 800 Number 0 Bowel Movements Physical Exam General Appearance: Alert, Oriented X3, Cooperative, No Acute Distress Other Physical Findings: Skin No Rashes Skin Temp/Moisture Exam: Warm/Dry HEENT Atraumatic, PERRLA, EOMI Neck Supple, No JVD, No thryomegaly Lymphatic Axillary nl, Cervical nl Cardiovascular Regular Rate, Normal S1, Normal S2 Lungs Clear to Auscultation, Normal Air Movement Abdomen No tenderness on palpation. No peritoneal signs Current Medications: Current Medications Sig/Brittni Start time Last Medication Dose Route Stop Time Status Admin Acetaminophen 650 MG .STK-MED ONE 10/28 1400 DC PO 10/28 1401 Acetaminophen 650 MG Q6P PRN 10/24 1245 DCD 10/28 PO 1359 Acetaminophen 1,000 MG Q6P PRN 10/24 1245 DCD IV Acetaminophen/ 1 TAB Q6P PRN 10/26 0915 DCD 10/27 Hydrocodone Bitart PO 0639 Aspirin Buffered 81 MG DAILY 10/25 1000 DCD 10/29 PO 1020 Atorvastatin Calcium 10 MG 1700 10/25 1700 DCD 10/28 PO 1618 Baclofen 10 MG QPM 10/24 2200 DCD 10/28 PO 2038 Carbamazepine 100 MG TID 10/24 1600 DCD 05 PO 1020 Enoxaparin Sodium 40 MG DAILY 10/25 1000 DCD 10/29 SC 1021 Gabapentin 400 MG TID 10/24 1600 DCD 05 PO 1020 Hydrochlorothiazide 25 MG DAILY 10/24 1540 DCD 05/15 PO 1020 Insulin Aspart 0 TIDAC 10/24 1700 DCD 10/28 SC 1745 Insulin Detemir 10 UNITS AT BEDTIME 10/24 2200 DCD 10/28 SC 2039 Losartan Potassium 50 MG DAILY 10/24 1330 DCD 05/15 PO 1020 Omeprazole 40 MG DAILY AC 10/26 1338 DCD 05/15 PO 0557 Ondansetron HCl 4 MG Q6P PRN 10/26 0915 DCD 10/26 IV 0914 Oxycodone HCl 10 MG Q6P PRN 10/24 1245 DCD 05 PO 0557 Polyethylene Glycol 17 GM DAILY PRN 10/28 1130 DCD PO Polyethylene Glycol 17 GM DAILY 10/27 1000 DCD 10/29 PO 1021 Senna/Docusate Sodium 1 TAB BID PRN 10/28 1130 DCD 10/28 PO 1309 Senna/Docusate Sodium 1 TAB BID 10/26 2200 DCD 10/29 PO 1020 Simethicone 80 MG Q8 10/26 1400 DCD 05 PO 0557 Tramadol HCl 100 MG Q6P PRN 10/24 1300 DCD 05 PO 0848 Assessment/Plan Assessment: This is a 61-year-old female with a past medical history of multiple sclerosis, hypertension, hyperlipidemia who presented to the hospital with abdominal pain, nausea and generalized weakness which she attributes as MS exacerbation. 1. Acute multiple sclerosis exacerbation 2. Acute abdominal pain with diarrhea most likely 2/2 viral gastroenteritis. Although she has elevated lipase CT abd negative for pancreatitis. 3. Leukocytosis and elevated hematocrit: Most likely secondary to dehydration and volume depletion/contraction 4. Hypertensive urgency in the setting of history of hypertension - RESOLVED 5. History of diabetes mellitus with elevated glucose level in the absence of an anion gap 6. History of hyperlipidemia on statin 7. New eveidence of Cellular casts in the urine. Plan Off Telemetry. Will continue to manage without steroids due to possible cause of gastric pain Will give Dulcolax po and PRN as it his highly likely patient abdominal pain is from conctipation (no BM for awhile) Will continue PPI wILL continue all home meds for her chronic condition Pt still feels tired and looks week, not stable for discharge. - Diabetic diet - Mild pain pathway - DVTppx with Lovenox - Full code. Problem List: 1. Exacerbation of multiple sclerosis 2. Weakness Pain Ratin Pain Location: Abdomen Pain Goal: Pain 4 or less Pain Plan: Mild pathway Tomorrow's Labs & Rationales: None
[2016-10-29 07:52] VITALS: BP 98/66
[2016-10-29] MEDS ORDERED: OMEPRAZOLE20 M2 PO (08:23)
[2016-10-29 10:20] VITALS: BP 104/66
--- NOTE | 2016-10-29 10:20 | PN- Att Addend ---
Attending Addendum Attending Brief Note Patient much better looking and feeling better, stronger, abdominal pain has subsided after she had a good bowel movement. Vital signs are stable no fever and no major changes on physical patient is stable to go home to follow with Dr. Mccloud and myself, will have visiting nurses. See the CMR and discharge summary. 24 TOTALS 10/29 0000 10/28 0000 Intake Total 1450 3600 Output Total 600 1400 Balance 850 2200 Intake, IV 0 1750 Intake, Oral 1450 1850 Number 1 Bowel Movements Output, Urine 600 1400 Laboratory Tests 10/27/16 0737: CBC w Diff NO MAN DIFF REQ, RBC 4.43, MCV 82.7, MCH 27.3, RDW 14.6 H, MPV 8.4, Gran % 71.2, Lymphocytes % 19.9 L, Monocytes % 8.4, Eosinophils % 0, Basophils % 0.5, Absolute Granulocytes 7.7 H, Absolute Lymphocytes 2.2, Absolute Monocytes 0.9 H, Absolute Eosinophils 0, Absolute Basophils 0.1, PUBS MCHC 33.0
--- NOTE | 2016-10-29 10:34 | Discharge Summary ---
Visit Information Visit Dates Admission Date: 10/24/16 Discharge Date: 10/29/16 Hospital Course Course Attending Physician: SAM POND MD Primary Care Physician: SAM POND MD Consulting Request: Consulting Specialty: Neurology Consulting Physician: Reason for Consult: exacerbation of her multiple sclerosis Hospital Course: 61-year-old -[place] female with history of multiple sclerosis for many years and follows with her neurologist had another exacerbation of her multiple sclerosis, comes in to be treated with IV steroids. Also was found that her blood pressure was pretty high that was treated and back to baseline and also she had some abdominal pain had CAT scans. At the end she was constipated and when she had a good bowel movement her abdominal pain subsided. Patient improved progressively. And is ready to go home on October 29 Complications: None Allergies: Coded Allergies: NO KNOWN ALLERGIES (09/08/15) Significant Procedures: SERVICE DATE: 10/24/16- EXAM TYPE: CAT - CT ABD & PELVIS W/O IV CONTRAS EXAMINATION: CT ABDOMEN AND PELVIS WITHOUT CONTRAST CLINICAL INFORMATION: Pancreatitis. Persistent nausea and vomiting. COMPARISON: 02/26/2010. TECHNIQUE: Contiguous axial thin section helical images of the abdomen and pelvis were performed without oral or IV contrast. The data set was reformatted in the coronal and sagittal planes and reviewed on an independent workstation. DLP: 254 mGy-cm. FINDINGS: There is mild dependent bibasilar atelectasis. The visualized lung bases are otherwise clear. The visualized portions of the heart are unremarkable. The liver is of normal size and attenuation without focal lesions nor intrahepatic biliary ductal dilation. A normal gallbladder is identified. There is no wall thickening or discernible pericholecystic fluid. The spleen, pancreas, adrenal glands are unremarkable. Both kidneys are of normal size and attenuation without hydronephrosis or nephrolithiasis. There is no abdominal free fluid. There is neither mesenteric nor retroperitoneal lymphadenopathy. Normal unopacified loops of small and large bowel are identified. There is no pelvic free fluid. The urinary bladder is unremarkable. There is neither pelvic nor inguinal lymphadenopathy. Bone windows: Neither sclerotic nor lytic bone lesions are identified. IMPRESSION: No evidence for acute abdominal or pelvic inflammatory or infectious processes. SERVICE DATE: 10/24/16-1033 EXAM TYPE: RAD - XRY-CHEST XRAY, PA AND LATERAL EXAMINATION: CHEST 2 VIEWS CLINICAL INFORMATION: Lethargy. Altered mental status. Concern for pneumonia. COMPARISON: 03/13/2016. TECHNIQUE: PA and lateral views of the chest were obtained. FINDINGS: The cardiac silhouette is not enlarged. The mediastinal and hilar contours are unremarkable. There are neither pleural effusions nor pneumothoraces. There are no consolidations. The osseous structures are unremarkable. IMPRESSION: No evidence of acute disease. SERVICE DATE: 10/25/16- EXAM TYPE: CARD - ECHOCARDIOGRAM MADI AFRMER Age: 61 : 1955 Gender: F Exam Date: 10/25/2016 10:31 Exam Location: [address] [place] [address] Ht (in): 62 Wt (lb): 140 BSA: 1.68 BP: 124 / 84 Ordering Physician: KATLYN HAMILTON MD Referring Physician: KATLYN HAMILTON MD Technologist: Chago Bustos [facility] Room Number: 179-2 Indications: Hypertension Rhythm: Sinus Technical Quality: good FINDINGS Left Ventricle Normal left ventricular size, wall thickness and systolic function with no obvious regional wall motion abnormalities. Normal left ventricular diastolic filling pattern for age. The ejection fraction is visually estimated at 65%. Right Ventricle The right ventricle is normal in size and function. Right Atrium The right atrium is normal in size. Left Atrium The left atrium is normal in size. The interatrial septum is intact. Mitral Valve The mitral valve is normal in structure and function. There is no mitral regurgitation. Aortic Valve Structurally normal aortic valve without significant sclerosis or stenosis. There is no aortic regurgitation. Tricuspid Valve The tricuspid valve is normal in structure and function. There is no tricuspid regurgitation. Pulmonary artery systolic pressure is normal. Pulmonic Valve Structurally normal pulmonic valve. There is no pulmonic regurgitation. Pericardium Normal pericardium without effusion. No pleural effusion. Great Vessels Normal aortic root dimension. The aortic arch and great vessels are well seen and are normal. CONCLUSIONS 1. Normal EF of 65%. Oliver Pinzon M.D. (Electronically Signed) Final Date: 26 Oct 2016 09:01 MEASUREMENTS (Male / Female) Normal Values 2D ECHO LV Diastolic Diameter PLAX 4.2 cm 4.2 - 5.9 / 3.9 - 5.3 cm LV Systolic Diameter PLAX 2.7 cm 2.1 - 4.0 cm LV Fractional Shortening PLAX 35.7 % 25 - 46 % LV Ejection Fraction 2D Teich 65.6 % IVS Diastolic Thickness 1.0 cm LVPW Diastolic Thickness 0.9 cm LV Relative Wall Thickness 0.5 RV Internal Dim ED PLAX 2.7 cm 1.9 - 3.8 cm LVOT Diameter 1.7 cm Aortic Root Diameter 2.4 cm LA Systolic Diameter LX 3.0 cm 3.0 - 4.0 / 2.7 - 3.8 cm LA Volume 21.0 cm 18 - 58 / 22 - 52 cm Ascending Aorta Diameter 3.1 cm DOPPLER AV Peak Velocity 150.0 cm/s AV Peak Gradient 9.0 mmHg AV Mean Velocity 106.0 cm/s AV Mean Gradient 5.0 mmHg AV Velocity Time Integral 34.6 cm LVOT Peak Velocity 69.2 cm/s LVOT Peak Gradient 1.9 mmHg LVOT Mean Velocity 41.1 cm/s LVOT Mean Gradient 1.0 mmHg LVOT Velocity Time Integral 16.8 cm LVOT Stroke Volume 38.1 cm AV Area Cont Eq vti 1.1 cm AV Area Cont Eq pk 1.0 cm MV Peak Velocity 88.2 cm/s MV Peak Gradient 3.1 mmHg MV Mean Velocity 56.5 cm/s MV Mean Gradient 1.0 mmHg Mitral E Point Velocity 58.7 cm/s Mitral A Point Velocity 62.2 cm/s Mitral E to A Ratio 0.9 MV PHT Velocity 77.4 cm/s MV Deceleration [place] 254.0 cm/s MV Pressure Half Time 91.4 ms MV Area PHT 2.4 cm MV Deceleration Time 451.0 ms PV Peak Velocity 101.0 cm/s PV Peak Gradient 4.1 mmHg PV Mean Velocity 61.1 cm/s PV Mean Gradient 2.0 mmHg PV Velocity Time Integral 20.9 cm LV E' Lateral Velocity 9.3 cm/s Mitral E to LV E' Lateral Ratio 6.3 LV E' Septal Velocity 6.0 cm/s Mitral E to LV E' Septal Ratio 9.7 Pertinent Lab Results: 10/25/16 0625: Anion Gap 15, Estimated GFR > 60, BUN/Creatinine Ratio 26.7 H, Lipase 415 H, CBC w Diff NO MAN DIFF REQ, RBC 5.31, MCV 82.2, MCH 26.7 L, RDW 14.6 H, MPV 8.4, Gran % 82.1 H, Lymphocytes % 9.7 L, Monocytes % 8.0, Eosinophils % 0, Basophils % 0.2, Absolute Granulocytes 12.4 H, Absolute Lymphocytes 1.5, Absolute Monocytes 1.2 H, Absolute Eosinophils 0, Absolute Basophils 0, PUBS MCHC 32.5 L 10/24/16 1330: Ur Eosinophil Smear 10/24/16 1330: Urine Color YEL, Urine Clarity CLEAR, Urine pH 6.5, Ur Specific [place] 1.015, Urine Protein 100 H, Urine Ketones TRACE H, Urine Nitrite NEG, Urine Bilirubin NEG, Urine Urobilinogen 0.2, Ur Leukocyte Esterase NEG, Ur Microscopic SEDIMENT EXAMINED, Urine RBC 1-3, Urine WBC 1-3 H, Ur Epithelial Cells OCCAS, Urine Bacteria FEW H, Hyaline Casts RARE H, Urine Mucus RARE, Micro UA Comment CELLULAR CASTS H, Urine Hemoglobin SMALL H, Urine Glucose >=1000 H 10/24/16 1120: Anion Gap 16, Estimated GFR > 60, BUN/Creatinine Ratio 25.0, Glucose 351 H, Hemoglobin A1c 7.5 H, Calcium 9.3, Magnesium 1.6, Total Bilirubin 0.9, AST 19, ALT 36, Alkaline Phosphatase 90, Total Protein 7.7, Albumin 4.8, Globulin 2.9, Albumin/Globulin Ratio 1.7, Triglycerides 132, Cholesterol 169, LDL Cholesterol, Calc 87, HDL Cholesterol 56, Cholesterol/HDL Ratio 3, Lipase 706 H, Carbamazepine < 3.0 L 10/24/16 1040: CBC w Diff NO MAN DIFF REQ, RBC 5.92 H, MCV 81.4, MCH 26.3 L, RDW 14.6 H, MPV 8.1, Gran % 84.2 H, Lymphocytes % 9.0 L, Monocytes % 6.5, Eosinophils % 0, Basophils % 0.3, Absolute Granulocytes 11.9 H, Absolute Lymphocytes 1.3, Absolute Monocytes 0.9 H, Absolute Eosinophils 0, Absolute Basophils 0, PUBS MCHC 32.3 L Replace potassium. 10/26/16 0635: Anion Gap 12, Estimated GFR > 60, BUN/Creatinine Ratio 28.9 H, Magnesium 2.2, CBC w Diff NO MAN DIFF REQ, RBC 4.67, MCV 82.1, MCH 26.7 L, RDW 14.8 H, MPV 8.5, Gran % 80.3 H, Lymphocytes % 12.7 L, Monocytes % 6.9, Eosinophils % 0, Basophils % 0.1, Absolute Granulocytes 12.0 H, Absolute Lymphocytes 1.9, Absolute Monocytes 1.0 H, Absolute Eosinophils 0, Absolute Basophils 0, PUBS MCHC 32.5 L 10/27/16 0737: CBC w Diff NO MAN DIFF REQ, RBC 4.43, MCV 82.7, MCH 27.3, RDW 14.6 H, MPV 8.4, Gran % 71.2, Lymphocytes % 19.9 L, Monocytes % 8.4, Eosinophils % 0, Basophils % 0.5, Absolute Granulocytes 7.7 H, Absolute Lymphocytes 2.2, Absolute Monocytes 0.9 H, Absolute Eosinophils 0, Absolute Basophils 0.1, PUBS MCHC 33.0 Disposition Summary Disposition Principal Diagnosis: Weakness with exacerbation of her multiple sclerosis Abdominal pain with constipation Hypertension Additional Diagnosis: Diabetes mellitus 2 Hyperlipidemia Discharge Disposition: home health services Discharge Instructions General Discharge Information Code Status: Full Code Patient's Diet: Healthy heart low sugar Patient's Activity: As tolerated Follow-Up Instructions/Appts: Follow-up with neurologist and myself Medications at Discharge Discharge Medications: Continue taking these medications: Losartan Potassium (Cozaar) 50 MG TABLET 1 Tablet ORAL DAILY Aspirin (Ecotrin*) 81 MG TABLET.DR 1 Tablet ORAL DAILY Atorvastatin Calcium (Lipitor) 10 MG TABLET 1 Tablet ORAL DAILY Hydrochlorothiazide (Hydrochlorothiazide) 25 MG TABLET 1 Tablet ORAL DAILY Comments: PER PT Gabapentin (Gabapentin) 400 MG CAPSULE 1 Capsule ORAL THREE TIMES DAILY Comments: PER PT Ergocalciferol (Vitamin D2) (Vitamin D2) 50,000 UNIT CAPSULE 1 Capsule ORAL EVERY SATURDAY Qty = 4 Comments: PER PT Oxymorphone HCl (Opana ER) 40 MG TAB.ER.12H 1 Tablet ORAL THREE TIMES DAILY as needed for PAIN Qty = 90 Comments: PER PT Tramadol HCl (Tramadol HCl) 50 MG TABLET 2 Tablet ORAL Q6H as needed for PAIN Qty = 120 Comments: PER PT Interferon Beta-1b (Betaseron) (Unknown Strength) KIT Unknown Dose Inject into fatty tissue EVERY 2 WEEKS Qty = 14 Comments: PER PT Ondansetron (Zofran Odt) 4 MG TAB.RAPDIS 1 Tablet SUBLINGUAL THREE TIMES DAILY as needed for nausea Qty = 15 Baclofen (Baclofen) 10 MG TABLET 1 Tablet ORAL Every night Carbamazepine (Carbamazepine) 100 MG TAB.CHEW 1 Tablet ORAL THREE TIMES DAILY Metformin HCl (Metformin HCl) 1,000 MG TABLET 1 Tablet ORAL TWICE DAILY Start taking the following new medications: Omeprazole (Omeprazole) 20 MG CAPSULE.DR 20 Milligram ORAL DAILY BEFORE BREAKFAST Qty = 30 No Refills Copies To: RENE ALBERTO,EDGAR Wiley; JOVANA POND MD, MD PhD,OLIVER Galdamez Attending MD Review Statement Documenting Attending: SAM POND MD
[2016-10-29] MEDS ORDERED: ZOFRAN ODT4 M1 SL (11:10)
== END 2016-10-29 12:27 | disposition home health service (06) | DRG 60 ==
LOC: ERH 09:49 → 1NO 11:42 → ERHI 11:42 → ENRESERV 14:10 → CANRESERV 14:10 → CMPBEDREQ 14:13 → ENRESERV 17:26 → 1NO 18:44 → ENPENDDIS 10-29 11:11 → 1NO 10-29 12:27
PROVIDERS: Internal Medicine Nephrology; Student in an Organized Health Care Education/Training Program; ADMIT Internal Medicine
DX: G35 Multiple sclerosis (principal); E11.42 Type 2 diabetes mellitus with diabetic polyneuropathy; E78.5 Hyperlipidemia, unspecified; Z79.84 Long term (current) use of oral hypoglycemic drugs; G25.81 Restless legs syndrome; E11.65 Type 2 diabetes mellitus with hyperglycemia; I16.0 Hypertensive urgency; E86.0 Dehydration; A08.4 Viral intestinal infection, unspecified; K59.00 Constipation, unspecified
CPT/HCPCS: 1NSP; 36415; 74176; 81001; 82436; 93005; 93010; 93306; 96361; 96365; 96372; 97162-GP; 97530-GO; J1040; J1650; J2405; J7060

== ENCOUNTER 2017-07-31 08:45 | Inpatient (IN) | payer OTHER ==
[~2017-07-31] VITALS: Ht 162.6 cm; Wt 68.0 kg
[~2017-07-31 08:45] MED LIST changes: +BACLOFEN10 M1 PO; +CARBAMAZEPINE100 M2 PO; -GABAPENTIN400 M2 PO; +METFORMIN HCL500 M3 PO; +NEURONTIN800 M2 PO; +OMEPRAZOLE20 M2 PO
--- NOTE | 2017-07-31 08:48 | ED NEURO DEFICIT/STROKE ---
History of Present Illness General Chief Complaint: Neuro Symptoms/ Deficit Stated Complaint: BIBA, STROKE? Source: family, old records, EMS Exam Limitations: clinical condition Vital Signs & Intake/Output Vital Signs & Intake/Output Vital Signs Date Time Temp Pulse Resp B/P B/P Pulse O2 O2 Flow FiO2 Mean Ox Delivery Rate 08/02 0655 99.3 64 20 148/80 96 Room Air 08/02 0130 99.4 08/01 2315 100.1 08/01 2258 100.1 67 16 122/78 98 Room Air 08/01 1422 99.8 78 16 102/60 98 Room Air ED Intake and Output 08/02 0000 08/01 1200 Intake Total 520 600 Output Total 650 950 Balance -130 -350 Intake, IV 600 Intake, Oral 520 0 Output, Urine 650 950 Allergies Coded Allergies: NO KNOWN ALLERGIES (NONE 07/31/17) Reconcile Medications Aspirin (Ecotrin*) 81 MG TABLET.DR 1 TAB PO DAILY HEART HEALTH (Reported) Atorvastatin Calcium (Lipitor) 10 MG TABLET 1 TAB PO DAILY CHOLESTEROL ( Reported) Baclofen 10 MG TABLET 1 TAB PO QPM PRN MUSCLE SPASMS (Reported) Carbamazepine 100 MG TAB.CHEW 1 TAB PO TID MS (Reported) Ergocalciferol (Vitamin D2) (Vitamin D2) 50,000 UNIT CAPSULE 1 CAP PO QMON SUPPLEMENT (Reported) Gabapentin (Neurontin) 800 MG TABLET 1 TAB PO TID NEUROPATHY (Reported) Hydrochlorothiazide 25 MG TABLET 1 TAB PO DAILY DIURETIC (Reported) Levetiracetam (Keppra) 500 MG TABLET 1 TAB PO BID SEIZURE Losartan Potassium (Cozaar) 50 MG TABLET 1 TAB PO DAILY HEART (Reported) Metformin HCl 500 MG TABLET 1 TAB PO QPM DIABETES (Reported) Metformin HCl 500 MG TABLET 2 TAB PO DAILY DIABETES (Reported) Ondansetron (Zofran Odt) 4 MG TAB.RAPDIS 1 TAB SL TID PRN nausea Oxymorphone HCl (Oxymorphone HCl ER) 40 MG TAB.ER.12H 1 TAB PO TID PRN PAIN ( Reported) Tramadol HCl 50 MG TABLET 2 TAB PO Q6H PRN PAIN (Reported) Triage Nurses Notes Reviewed? yes Onset: Abrupt Duration: STARTED YESTERDAY, WORSE TODAY Severity: severe Baseline: alert, oriented x 3, walks w/o assistance HPI: This is a 62-year-old female with history of hypertension, diabetes, and asked to present by EMS from home for chief complaint of not acting right. According to the daughter she saw her yesterday evening and felt that she wasn't acting herself and was responding kind of slow. She has been having a poor appetite of late and daughter thought she just needed to eat more food. However this morning her father called her in a panic and states that her mother was not acting normal needs to go to the hospital. Upon EMS arrival she was slightly altered. She had right arm contracture and appeared to be seizing. Blood pressure was elevated in that arm 220/100. Blood sugar was over 200. No history of stroke or seizure. She was not communicating with them normally in the field but was saying a few words here and there. On arrival patient appeared to be having a partial complex seizure with right upper extremity stiffness and tremors. While in CAT scan patient's became a little bit more responsive. Right arm stopped radha and patient was able to squeeze my hand. She complained of some chest pain. Past History Travel History Traveled to [place] past 21 day No Medical History Any Pertinent Medical History? see below for history Neurological: multiple sclerosis, restless leg syndrome EENT: NONE Cardiovascular: hypertension Respiratory: NONE Gastrointestinal: NONE Hepatic: NONE Renal: INCREASED URINARY FREQUEN CY R/T MS Musculoskeletal: NONE Psychiatric: insomnia, INSOMNIA R/T RESTLESS LEG Endocrine: diabetes Blood Disorders: NONE Cancer(s): NONE MEDIA ASSOCIATE/Reproductive: History of MRSA: No History of VRE: No History of CDIFF: No Surgical History Surgical History: non-contributory Psychosocial History Who do you live with Spouse Services at Home None What is your primary language Serbian Family History Family History, If Any: Relation not specified for: FH: diabetes in Hx Contributory? No Review of Systems Review of Systems Constitutional: Reports: see HPI (SEE HPI). EENTM: Reports: no symptoms. Respiratory: Reports: no symptoms. Cardiovascular: Reports: chest pain. GI: Denies: vomiting. Genitourinary: Reports: no symptoms. Musculoskeletal: Reports: no symptoms. Skin: Reports: no symptoms. Neurological/Psychological: Reports: confusion (PER FAMILY). Hematologic/Endocrine: Denies: bleeding. Immunologic/Allergic: Reports: no symptoms. All Other Systems: Reviewed and Negative Physical Exam Physical Exam General Appearance: well developed/nourished, lethargic, AROUSABLE Head: atraumatic, normal appearance Eyes: Bilateral: normal appearance, PERRL, EOMI. Ears, Nose, Throat: normal ENT inspection, moist mucous membrane, hearing grossly normal, pharynx normal Neck: normal inspection, supple, full range of motion Respiratory: normal breath sounds, chest non-tender, no respiratory distress Cardiovascular: regular rate/rhythm, normal peripheral pulses Peripheral Pulses: 2+ radial (R), 2+ radial (L) Gastrointestinal: soft Extremities: RIGHT ARM STIFF AND TREMORING ON ARRIVAL Psychiatric: LETHARGIC, ? FACIAL DROOP Cranial Nerves: NOT SPEAKING ON ARRIVAL, NO GAZE PALSY, PERRLA Motor/Sensory: AFTER ? SEIZURE, PATIENT WITH 5/5 RETAIL CLIENT SOLUTIONS CONSULTANT STRENGTH, UNABLE TO TEST LOWER EXTREMITIES WOULD NOT COOPERATE (LETHARGIC) Skin: intact, normal color, warm/dry, NO RASH Core Measures CVA/TIA Diagnosis: No Sepsis Present: No Sepsis Focused Exam Completed? No Progress Differential Diagnosis: seizure disorder, stroke, HYPERTENSIVE ENCEPHALOPATHY, DISSECTION, ENCEPHALOPATHY, MS EXACERBATION, TOXIC INGESTION Plan of Care: Orders Procedure Date/time Status Discharge Patient 08/02 UNK Active Therapeutic Activity 08/02 UNK Complete Consistent Carbohydrate 3 08/01 L Active Evaluate Swallowing 08/01 UNK Complete Nursing Misc 08/01 UNK Active MISSING MEDICATION FORM 08/01 UNK Active Current Medications Sig/Brittni Start time Last Medication Dose Stop Time Status Admin Aspirin Buffered 81 MG DAILY 08/02 1000 AC (Ecotrin) Hydrochlorothiazide 25 MG DAILY 08/02 1000 AC (Hydrodiuril) Losartan Potassium 50 MG DAILY 08/02 1000 AC (Cozaar) Tramadol HCl 100 MG Q6H PRN 08/02 0945 AC (Ultram) Heparin Sodium 5,000 UNIT Q8 08/01 2200 AC 08/02 (Porcine) 0638 Insulin Aspart 0 TIDAC 08/01 1700 AC 08/02 (NovoLOG) 0828 Atorvastatin Calcium 10 MG DAILY 08/01 1409 AC 08/01 (Lipitor) 1815 Levetiracetam 500 MG Q12 07/31 2200 AC 08/01 (Keppra) 2206 N/A 1 UNIT (No Carrier) Acetaminophen 1,000 MG Q6P PRN 07/31 1430 AC 08/01 (Ofirmev) [address] ON ARRIVAL. NO OBVIOUS BLEED. PATIENT STOPPED SEIZING, COMPLAINED OF CHEST PAIN. VERY HYPERTENSIVE. CT ANGIOGRAM DONE TO R/O AORTIC DISSECTION IN SETTING OF CHEST PAIN, SEVERE HTN AND NEURO DEFICIT. 10:53 AM D/W DR HARKINS. CT ABD/PELVIS/CHEST WNL. DR RENE CALVO. D/W DR LÓPEZ. AGREES WITH IV KEPPRA LOADING. WILL OBTAIN MRI HEAD TO R/O MS EXACERBATION/CVA. IMPROVED MENTAL STATE, FAMILY STATES SHE IS COMMUNICATING WITH THEM BUT SEEMS A LITTLE LETHARGIC AND CONFUSED. Diagnostic Imaging: Viewed by Me: Radiology Read, CT Scan, MRI. Discussed w/RAD: Radiology Read, CT Scan, MRI. 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 Neuro deficits. COMPARISON: Head CT 09/07/2015. TECHNIQUE: Contiguous axial imaging was performed from the skull base to vertex without intravenous administration of contrast. DLP: 620 mGy-cm. FINDINGS: There is no intracranial hemorrhage, large infarction, or mass lesion. There is no extra- axial collection. There is focal ossification along the inner table of the right parietal calvarium measuring approximately 11 mm which may represent a calcified meningioma or osteoma. There is moderate scattered hypoattenuation in the bilateral cerebral white matter and central [place], which is nonspecific but likely reflects small vessel disease. There are chronic bilateral basal ganglia lacunar infarcts. There is no dense vessel sign. The paranasal sinuses are clear. The mastoids and middle ear cavities are clear. There are atheromatous changes at the bilateral carotid siphons. IMPRESSION: 1. No CT evidence of large territory infarction, hemorrhage, or mass lesion. 2. Background of moderate small vessel ischemic changes which could obscure a small or developing infarction. Chronic bilateral basal ganglia lacunar infarcts are again demonstrated. An MRI can be obtained for more sensitive evaluation as clinically indicated. DICTATED BY: Tomasz De La Cruz MD DATE/TIME DICTATED:07/31/17931 DEWATERER OPERATOR:ELEANOR DATE/TIME TRANSCRIBED:07/31/17931 CONFIDENTIAL, DO NOT COPY WITHOUT APPROPRIATE AUTHORIZATION. 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 COMPARISON: CT abdomen and pelvis of 10/24/2016, 02/26/2010. TECHNIQUE: Noncontrast volumetric CT imaging through the chest was obtained. Following intravenous administration of 94 mL of Optiray [address] imaging of the chest, abdomen and pelvis is acquired as per angiographic protocol to evaluate for aortic dissection. Postprocessing is performed at a dedicated workstation. Multiplanar reformatted and MIPS images are submitted for review. DLP: 1266.78 mGy-cm FINDINGS: VASCULAR FINDINGS: The thoracic and abdominal aorta are normal in caliber and well opacified. There is no evidence of dissection in the thoracic aorta or abdominal aorta. Normal three-vessel origin anatomy of the great vessels. The visualized great vessels are unremarkable. Mild coronary calcifications. The SMA, hepatic arteries, splenic artery, celiac axis and CHARLEEN are normal in caliber and well patent. There are single renal arteries on each side which are normal in caliber and well patent. The iliac arteries and visualized common femoral arteries are normal in caliber and well patent. There is minimal scattered calcific atherosclerosis of the abdominal aorta and iliac arteries. The central pulmonary arteries are normal in caliber and well- opacified. CHEST: Evaluation of the lung parenchyma is somewhat limited due to respiratory motion artifacts and beam hardening artifacts from the patient's upper extremities being in the gantry. Diffuse groundglass changes, greater in the dependent position are nonspecific and could be related to hypoventilatory changes. However inflammatory or infectious process cannot be completely excluded. No lobar consolidation. Small consolidation in the right middle lobe likely represents atelectasis. The trachea and central bronchi are well patent. The visualized thyroid gland is unremarkable. There is no evidence of pleural or pericardial effusion. Cardiac size is normal. Small hiatal hernia. No axillary, mediastinal or hilar adenopathy. ABDOMEN AND PELVIS: Again the evaluation is somewhat limited due to beam hardening artifacts from patient's upper extremities being in the gantry. The liver is normal in size, shape and attenuation. No focal liver lesion is noted. The gallbladder is physiologically distended without evidence of radiopaque stones, wall thickening or obvious pericholecystic inflammatory changes. No biliary ductal dilatation. The spleen, pancreas and adrenal glands are unremarkable. The kidneys are normal in size, shape and attenuation. No evidence of radiopaque urinary tract calculi, hydroureteronephrosis or perinephric stranding. An exophytic cyst arising from the mid right kidney measuring 3 cm is not significantly changed since the last study. A hypodense cortical lesion in the upper to mid right kidney anterolaterally measuring 1.7 cm is not significantly changed compared to previous studies of 2017 and 2010, previously 1.4 cm. The urinary bladder is moderately distended and unremarkable. The uterus is somewhat elongated and deviated to the left, stable in appearance compared to previous studies. The left adnexa is high in location in the upper pelvis/lower abdomen and is stable in appearance. No right adnexal mass. There is no evidence of colonic wall thickening or pericolonic fat stranding. An appendix is normal. Stomach is partially distended and grossly unremarkable. Small bowel is not dilated. No free intraperitoneal air or fluid. No lymphadenopathy is noted. No significant abdominal wall hernia. OSSEOUS STRUCTURES: No acute or suspicious osseous abnormality in the chest, abdomen and pelvis. Degenerative changes are noted in the lower lumbar spine. Multilevel degenerative changes are noted in the thoracic spine. IMPRESSION: 1. No evidence of thoracic or abdominal aortic dissection or aneurysm. 2. Evaluation of the lung parenchyma is limited due to multiple respiratory motion artifacts. Nonspecific diffuse groundglass appearance of the lung parenchyma could be related to hypoventilatory changes however underlying inflammatory or infectious process would be difficult to exclude completely. 3. Bilateral hypodense renal lesions are not significantly changed compared to last study representing cysts. 4. No acute abnormality in the abdomen and pelvis. 5. Moderate urinary bladder distention, consider decompression. DICTATED BY: Shlomo ALBERTO,Anal DATE/TIME DICTATED:07/31/171011 DEWATERER OPERATOR:ELEANOR DATE/TIME TRANSCRIBED:07/31/171011 CONFIDENTIAL, DO NOT COPY WITHOUT APPROPRIATE AUTHORIZATION. 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 History of multiple sclerosis. COMPARISON: CT scan of the head earlier 07/31/2017. MRI scan of the brain 04/21/2014. TECHNIQUE: MRI of the brain without contrast was obtained using routine sequences. FINDINGS: No diffusion abnormalities are identified to suggest an acute or subacute infarct. No mass effect or midline shift is seen. The ventricles are normal in size. The study redemonstrates scattered areas of T2 and FLAIR hyperintensity in the periventricular white matter, in a distribution consistent with the patient's history of multiple sclerosis. The findings appear stable compared to prior imaging. There are basal ganglia lacunar infarcts. No extra-axial fluid collections are seen. The brainstem and cerebellum are normal. No pathologic magnetic susceptibility artifact is identified on the gradient refocused acquisition. The craniovertebral junction and marrow signal are normal. 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 There is a 1 cm extra-axial calcified region in the right parietal area, unchanged compared to prior imaging and most consistent with a small meningioma. The major intracranial flow-voids at the level of the [place] are preserved. The dural venous sinus flow-voids are maintained. The mastoid air cells are well-aerated. There is mild mucoperiosteal thickening in the maxillary, sphenoid and ethmoid sinuses. The nasal septum is deviated to the left and there is a left-sided bony nasal septal spur. IMPRESSION: 1. There are no acute bleeds or infarcts. 2. There are scattered areas of and FLAIR signal abnormality in the white matter, most consistent with sequelae of multiple sclerosis, similar compared to prior imaging. No evidence of acute demyelination is seen on the diffusion images. There are basal ganglia lacunar infarcts. 3. 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 There is an extra-axial calcified area in the right parietal region, most consistent with a meningioma. DICTATED BY: Darian Mnotenegro MD DATE/TIME DICTATED:07/31/171601 DEWATERER OPERATOR:ELEANOR DATE/TIME TRANSCRIBED:07/31/171601 CONFIDENTIAL, DO NOT COPY WITHOUT APPROPRIATE AUTHORIZATION. <Electronically signed in Other Vendor System> SIGNED BY: Darian Montenegro MD 07/31/17 1617 Departure Departure Disposition: STILL A PATIENT Condition: Stable Clinical Impression Primary Impression: Seizure Secondary Impressions: Acute kidney injury, Chest pain Referrals: Rene ALBERTO,Christopher Harkins MD,Dagoberto (PCP/Family) Departure Forms: Customer Survey General Discharge Information Prescriptions: Current Visit Scripts Levetiracetam (Keppra) 1 TAB PO BID #60 TAB
[2017-07-31] MEDS ORDERED: METFORMIN HCL500 M3 PO (09:00)
[2017-07-31] MEDS ORDERED: OXYMORPHONE HCL40 MG PO (09:03)
--- NOTE | 2017-07-31 09:42 | CT SCAN REPORT ---
EXAMINATION: CT HEAD WITHOUT CONTRAST CLINICAL INFORMATION: Stroke. Neuro deficits. COMPARISON: Head CT 09/07/2015. TECHNIQUE: Contiguous axial imaging was performed from the skull base to vertex without intravenous administration of contrast. DLP: 620 mGy-cm. FINDINGS: There is no intracranial hemorrhage, large infarction, or mass lesion. There is no extra-axial collection. There is focal ossification along the inner table of the right parietal calvarium measuring approximately 11 mm which may represent a calcified meningioma or osteoma. There is moderate scattered hypoattenuation in the bilateral cerebral white matter and central [place], which is nonspecific but likely reflects small vessel disease. There are chronic bilateral basal ganglia lacunar infarcts. There is no dense vessel sign. The paranasal sinuses are clear. The mastoids and middle ear cavities are clear. There are atheromatous changes at the bilateral carotid siphons. IMPRESSION: 1. No CT evidence of large territory infarction, hemorrhage, or mass lesion. 2. Background of moderate small vessel ischemic changes which could obscure a small or developing infarction. Chronic bilateral basal ganglia lacunar infarcts are again demonstrated. An MRI can be obtained for more sensitive evaluation as clinically indicated.
[2017-07-31 10:18] LABS: ABSOLUTE BASOPHIL COUNT 0 /CUMM (0.0-0.2); ABSOLUTE EOSINOPHIL COUNT 0.2 /CUMM (0.0-0.7); ABSOLUTE LYMPH COUNT 1.4 /CUMM (1.2-3.4); ABSOLUTE MONOCYTE COUNT 0.7 /CUMM (0.10-0.60); BASOPHIL % 0.4 % (0.0-2.0); GRANULOCYTE % 75.1 % (42.2-75.2); MEAN CORPUSCULAR HGB 26.4 PG (27.0-31.0); MEAN CORPUSCULAR HGB CONC 33.1 G/DL (33.0-37.0); MEAN CORPUSCULAR VOLUME 79.6 FL (81.0-99.0); MEAN PLATELET VOLUME 7.3 FL (7.4-10.4); PLATELET COUNT 398 /CUMM (130-400); RED BLOOD CELL CT 4.52 /CUMM (4.20-5.40); WHITE BLOOD CELL COUNT 9.3 /CUMM (4.8-10.8)
[2017-07-31 10:29] LABS: PT 11.7 SEC (9.4-12.5); PTT 29 SEC (25-37)
--- NOTE | 2017-07-31 11:07 | CT SCAN REPORT ---
EXAMINATION: CT ANGIOGRAM CHEST CT ANGIOGRAM ABDOMEN AND PELVIS CLINICAL INFORMATION: Evaluate for aortic dissection. COMPARISON: CT abdomen and pelvis of 10/24/2016, 02/26/2010. TECHNIQUE: Noncontrast volumetric CT imaging through the chest was obtained. Following intravenous administration of 94 mL of Optiray [address] imaging of the chest, abdomen and pelvis is acquired as per angiographic protocol to evaluate for aortic dissection. Postprocessing is performed at a dedicated workstation. Multiplanar reformatted and MIPS images are submitted for review. DLP: 1266.78 mGy-cm FINDINGS: VASCULAR FINDINGS: The thoracic and abdominal aorta are normal in caliber and well opacified. There is no evidence of dissection in the thoracic aorta or abdominal aorta. Normal three-vessel origin anatomy of the great vessels. The visualized great vessels are unremarkable. Mild coronary calcifications. The SMA, hepatic arteries, splenic artery, celiac axis and CHARLEEN are normal in caliber and well patent. There are single renal arteries on each side which are normal in caliber and well patent. The iliac arteries and visualized common femoral arteries are normal in caliber and well patent. There is minimal scattered calcific atherosclerosis of the abdominal aorta and iliac arteries. The central pulmonary arteries are normal in caliber and well-opacified. CHEST: Evaluation of the lung parenchyma is somewhat limited due to respiratory motion artifacts and beam hardening artifacts from the patient's upper extremities being in the gantry. Diffuse groundglass changes, greater in the dependent position are nonspecific and could be related to hypoventilatory changes. However inflammatory or infectious process cannot be completely excluded. No lobar consolidation. Small consolidation in the right middle lobe likely represents atelectasis. The trachea and central bronchi are well patent. The visualized thyroid gland is unremarkable. There is no evidence of pleural or pericardial effusion. Cardiac size is normal. Small hiatal hernia. No axillary, mediastinal or hilar adenopathy. ABDOMEN AND PELVIS: Again the evaluation is somewhat limited due to beam hardening artifacts from patient's upper extremities being in the gantry. The liver is normal in size, shape and attenuation. No focal liver lesion is noted. The gallbladder is physiologically distended without evidence of radiopaque stones, wall thickening or obvious pericholecystic inflammatory changes. No biliary ductal dilatation. The spleen, pancreas and adrenal glands are unremarkable. The kidneys are normal in size, shape and attenuation. No evidence of radiopaque urinary tract calculi, hydroureteronephrosis or perinephric stranding. An exophytic cyst arising from the mid right kidney measuring 3 cm is not significantly changed since the last study. A hypodense cortical lesion in the upper to mid right kidney anterolaterally measuring 1.7 cm is not significantly changed compared to previous studies of 2017 and 2010, previously 1.4 cm. The urinary bladder is moderately distended and unremarkable. The uterus is somewhat elongated and deviated to the left, stable in appearance compared to previous studies. The left adnexa is high in location in the upper pelvis/lower abdomen and is stable in appearance. No right adnexal mass. There is no evidence of colonic wall thickening or pericolonic fat stranding. An appendix is normal. Stomach is partially distended and grossly unremarkable. Small bowel is not dilated. No free intraperitoneal air or fluid. No lymphadenopathy is noted. No significant abdominal wall hernia. OSSEOUS STRUCTURES: No acute or suspicious osseous abnormality in the chest, abdomen and pelvis. Degenerative changes are noted in the lower lumbar spine. Multilevel degenerative changes are noted in the thoracic spine. IMPRESSION: 1. No evidence of thoracic or abdominal aortic dissection or aneurysm. 2. Evaluation of the lung parenchyma is limited due to multiple respiratory motion artifacts. Nonspecific diffuse groundglass appearance of the lung parenchyma could be related to hypoventilatory changes however underlying inflammatory or infectious process would be difficult to exclude completely. 3. Bilateral hypodense renal lesions are not significantly changed compared to last study representing cysts. 4. No acute abnormality in the abdomen and pelvis. 5. Moderate urinary bladder distention, consider decompression.
--- NOTE | 2017-07-31 14:13 | History & Physical ---
General Information and HPI MD Statement: I have seen and personally examined MADI FARMER and documented this H&P. The patient is a 62 year old F who presented with a patient stated chief complaint of [Altered mental status]. Source of Information: patient, family, old records Exam Limitations: no limitations History of Present Illness: is a 62 yo lady with PMHx. of MS, type 2 diabetes, hypertension and dyslipidemia presented to emergency department from home with chief complaint slurred speech, altered mental status, twitching movement of both arms. History was limited History was obtained from daughters as the patient was lethargic and not responding to my questions, daughter mentions that she call to check on her mother and her elderly father and no one was answering the phone later on her father called her and told her that her mother is not looking right she went to check on her mother and she found her lying on the bed flat with her arm beside her chest with twitching movement, she wasn't communicating as usual, she had slurred speech and facial drooping was noted by the daughter, embolus was called and they brought her to the emergency department. Per daughter patient was started about 2 months ago on morphine for pain and since she was started on morphine she noted that she became more drowsy. Allergies/Medications Allergies: Coded Allergies: NO KNOWN ALLERGIES (NONE 07/31/17) Home Med list Aspirin (Ecotrin*) 81 MG TABLET.DR 1 TAB PO DAILY HEART HEALTH (Reported) Atorvastatin Calcium (Lipitor) 10 MG TABLET 1 TAB PO DAILY CHOLESTEROL ( Reported) Baclofen 10 MG TABLET 1 TAB PO QPM PRN MUSCLE SPASMS (Reported) Carbamazepine 100 MG TAB.CHEW 1 TAB PO TID MS (Reported) Ergocalciferol (Vitamin D2) (Vitamin D2) 50,000 UNIT CAPSULE 1 CAP PO QMON SUPPLEMENT (Reported) Gabapentin (Neurontin) 800 MG TABLET 1 TAB PO TID NEUROPATHY (Reported) Hydrochlorothiazide 25 MG TABLET 1 TAB PO DAILY DIURETIC (Reported) Levetiracetam (Keppra) 500 MG TABLET 1 TAB PO BID SEIZURE Losartan Potassium (Cozaar) 50 MG TABLET 1 TAB PO DAILY HEART (Reported) Metformin HCl 500 MG TABLET 1 TAB PO QPM DIABETES (Reported) Metformin HCl 500 MG TABLET 2 TAB PO DAILY DIABETES (Reported) Ondansetron (Zofran Odt) 4 MG TAB.RAPDIS 1 TAB SL TID PRN nausea Oxymorphone HCl (Oxymorphone HCl ER) 40 MG TAB.ER.12H 1 TAB PO TID PRN PAIN ( Reported) Tramadol HCl 50 MG TABLET 2 TAB PO Q6H PRN PAIN (Reported) Past History Travel History Traveled to [place] past 21 day No Medical History Neurological: multiple sclerosis, restless leg syndrome EENT: NONE Cardiovascular: hypertension Respiratory: NONE Gastrointestinal: NONE Hepatic: NONE Renal: INCREASED URINARY FREQUEN CY R/T MS Musculoskeletal: NONE Psychiatric: insomnia, INSOMNIA R/T RESTLESS LEG Endocrine: diabetes Blood Disorders: NONE Cancer(s): NONE 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 Cardiovascular: Reports: see HPI. Respiratory: Reports: see HPI. Musculoskeletal: Reports: joint pain. Neurological/Psychological: Reports: confusion, tonic-clonic seizures, weakness. Exam & Diagnostic Data Last 24 Hrs of Vital Signs/I&O Vital Signs Date Time Temp Pulse Resp B/P B/P Pulse O2 O2 Flow FiO2 Mean Ox Delivery Rate 07/31 1421 99.6 70 18 108/68 99 Room Air 07/31 1354 97.2 78 18 100/58 98 Room Air 07/31 1120 99.6 78 18 136/79 99 Room Air 07/31 0952 99 Room Air 2.0L 07/31 0946 99.4 74 18 126/77 99 Room Air Intake & Output 07/31 1600 07/31 0800 07/31 0000 Intake Total 0 Output Total Balance 0 Intake, Oral 0 Patient 150 lb Weight Weight Estimated Measurement Method Physical Exam General Appearance lethargic Skin No Rashes, No Breakdown, No Significant Lesion Skin Temp/Moisture Exam: Warm/Dry Cardiovascular Regular Rate, Normal S1, Normal S2 Lungs Clear to Auscultation, Normal Air Movement Neurological I couldn't obtain accurate neurological exam as the patient was lethargic during the encounter and she's not follow, and however she was noted to have facial droop to the right side Extremities No Edema Last 24 Hrs of Labs/Danis: Laboratory Tests 07/31/17 1003: Anion Gap 15, Estimated GFR 14 L, BUN/Creatinine Ratio 15.2, Glucose 205 H, Lactic Acid 1.0, Calcium 9.1, Total Bilirubin 0.4, AST 47 H, ALT 36, Alkaline Phosphatase 118, Troponin I 0.02, Total Protein 6.4, Albumin 3.7, Globulin 2.7, Albumin/Globulin Ratio 1.4, Prolactin 7.7, PT 11.7, INR 1.12, APTT 29, CBC w Diff NO MAN DIFF REQ, RBC 4.52, MCV 79.6 L, MCH 26.4 L, MCHC 33.1, RDW 14.0, MPV 7.3 L, Gran % 75.1, Lymphocytes % 14.9 L, Monocytes % 7.6, Eosinophils % 2.0, Basophils % 0.4, Absolute Granulocytes 7.0 H, Absolute Lymphocytes 1.4, Absolute Monocytes 0.7 H, Absolute Eosinophils 0.2, Absolute Basophils 0 07/31/17 0936: Urine Opiates Screen > 4000.00 H, Methadone Screen < 40, Barbiturate Screen < 60, Ur Phencyclidine Scrn < 6.00, Amphetamines Screen < 100, U Benzodiazepines Scrn < 85, Urine Cocaine Screen < 50, Urine Cannabis Screen < 5.00, Urinalysis MOD H, Urine Color YEL, Urine Clarity HAZY H, Urine pH 6.0, Ur Specific [place] >= 1.030, Urine Protein 30 H, Urine Ketones NEG, Urine Nitrite NEG, Urine Bilirubin NEG, Urine Urobilinogen 0.2, Ur Leukocyte Esterase NEG, Ur Microscopic SEDIMENT EXAMINED, Urine RBC 3-5, Urine WBC 1-3 H, Ur Epithelial Cells MOD H, Urine Bacteria MANY H, Hyaline Casts 1-3 H, Granular Casts RARE H, Urine Hemoglobin MOD H, Urine Glucose 100 H Microbiology 07/31 1000 BLOOD: Blood Culture - RECD 07/31 936 NASOPHARYN: Influenza Virus A & B Rapid Smear - COMP 07/31 935 URINE ROUT: Urine Culture - RECD 07/31 935 BLOOD: Blood Culture - RECD Diagnostic Data EKG Results Normal sinus rhythm with no acute changes Borderline QTC at [address]: IMPRESSION: 1. No CT evidence of large territory infarction, hemorrhage, or mass lesion. 2. Background of moderate small vessel ischemic changes which could obscure a small or developing infarction. Chronic bilateral basal ganglia lacunar infarcts are again demonstrated. An MRI can be obtained for more sensitive evaluation as clinically indicated. Abdomen pelvis CT: And chest CT: IMPRESSION: 1. No evidence of thoracic or abdominal aortic dissection or aneurysm. 2. Evaluation of the lung parenchyma is limited due to multiple respiratory motion artifacts. Nonspecific diffuse groundglass appearance of the lung parenchyma could be related to hypoventilatory changes however underlying inflammatory or infectious process would be difficult to exclude completely. 3. Bilateral hypodense renal lesions are not significantly changed compared to last study representing cysts. 4. No acute abnormality in the abdomen and pelvis. 5. Moderate urinary bladder distention, consider decompression. Assessment/Plan Assessment: is a 62 yo lady with PMHx. of MS, type 2 diabetes, hypertension and dyslipidemia presented with chief complaint slurred speech, twitching movement of her arms, altered mental status admitted for new onset seizure, possible stroke Vitals, examination, labs, and imaging as above Assessment: #New onset seizure #Aphasia and facial drooping which raises the suspicion for acute ischemic/ hemorrhagic stroke #History of MS #History of diabetes #History of hypertension #History of hyperlipidemia #Urinary retention per Ct abdomen/pelvis finding Plan: -MRI head without gadolinium was already ordered by the ED will follow up on the results -Patient received a loading dose of Keppra by ED, we will start starting dose of 500 mg twice a day -We'll gently hydrate with normal saline for now at 75 mg per hour, if her blood sugar runs low we will switch to D5 half-normal saline. Per no need for permissive BP at this time as no acute finding on CT-head. -EEG was ordered with follow-up on the results -Bilateral carotid ultrasonography to rule out any stenosis -Neuro check, NIHA scalesoc -Accu-Chek for blood sugar -PT/OT/ST was ordered. -Currently she is nothing by mouth, will obtain swallow evaluation -I spoke with Dr. Mccloud by phone and he is aware, he is coming to see the patient today. -Bedside bladder scan and straight cath protocol ALPS for DVT prophylaxis She is full code As Ranked By This Provider Problem List: 1. Benign essential hypertension 2. Diabetes mellitus 3. Multiple sclerosis 4. Seizure 5. Altered mental status 6. Aphasia Core Measures/Misc (03/03) Acute Coronary Syndrome ACS Diagnosis: No Congestive Heart Failure Congestive Heart Failure Diagnosis No Cerebrovascular Accident CVA/TIA Diagnosis: No VTE (View Protocol) VTE Risk Factors Age>40 No Mechanical VTE Prophylaxis d/t N/A MechProphylax Ordered No VTE Pharm Prophylaxis d/t NA PharmProphylax ordered Sepsis (View protocol) Sepsis Present: No
--- NOTE | 2017-07-31 15:52 | ULTRASOUND REPORT ---
EXAMINATION: DUPLEX BILATERAL CAROTID ULTRASOUND CLINICAL INFORMATION: There is a 62-year-old female with slurred speech and acute mental status changes. Carotid artery disease. COMPARISON: None. TECHNIQUE: Real-time ultrasound and Doppler techniques (integrating B-mode 2D vascular images, Doppler spectral analysis and color flow Doppler imaging) were utilized to interrogate the extracranial carotid and vertebral arteries bilaterally. The degree of stenosis determined by criteria similar to NASCET. FINDINGS: Right side: 1. Minimal amount of heterogeneous plaque is seen in the ECA/ICA region. 2. The common carotid artery velocity is 99 cm/s. 3. The internal carotid artery velocities are 104 cm/s systolic and 22 cm/s diastolic. 4. The external carotid artery velocity is 132 cm/s. There is a mild hemodynamically significant stenosis within the external carotid artery. Left side: 1. Minimal amount of heterogeneous plaque is seen in the ECA/ICA region. 2. The common carotid artery velocity is 121 cm/s. 3. The internal carotid artery velocities are 81 cm/s systolic and 21 cm/s diastolic. 4. The external carotid artery velocity is 159 cm/s. There is a mild hemodynamically significant stenosis within the external carotid artery. ADDITIONAL FINDINGS: 1. The vertebral arteries show antegrade flow. IMPRESSION: 1. RIGHT: Minimal, nonhemodynamically significant stenosis of the proximal right internal carotid artery corresponding to a 0-49% stenosis by velocity criteria. 2. LEFT: Minimal, nonhemodynamically significant stenosis of the proximal left internal carotid artery corresponding to a 0-49% stenosis by velocity criteria.
--- NOTE | 2017-07-31 16:17 | MRI REPORT ---
EXAMINATION: MR BRAIN WITHOUT CONTRAST CLINICAL INFORMATION: New onset seizure. History of multiple sclerosis. COMPARISON: CT scan of the head earlier 07/31/2017. MRI scan of the brain 04/21/2014. TECHNIQUE: MRI of the brain without contrast was obtained using routine sequences. FINDINGS: No diffusion abnormalities are identified to suggest an acute or subacute infarct. No mass effect or midline shift is seen. The ventricles are normal in size. The study redemonstrates scattered areas of T2 and FLAIR hyperintensity in the periventricular white matter, in a distribution consistent with the patient's history of multiple sclerosis. The findings appear stable compared to prior imaging. There are basal ganglia lacunar infarcts. No extra-axial fluid collections are seen. The brainstem and cerebellum are normal. No pathologic magnetic susceptibility artifact is identified on the gradient refocused acquisition. The craniovertebral junction and marrow signal are normal. 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 There is a 1 cm extra-axial calcified region in the right parietal area, unchanged compared to prior imaging and most consistent with a small meningioma. The major intracranial flow-voids at the level of the [place] are preserved. The dural venous sinus flow-voids are maintained. The mastoid air cells are well-aerated. There is mild mucoperiosteal thickening in the maxillary, sphenoid and ethmoid sinuses. The nasal septum is deviated to the left and there is a left-sided bony nasal septal spur. IMPRESSION: 1. There are no acute bleeds or infarcts. 2. There are scattered areas of and FLAIR signal abnormality in the white matter, most consistent with sequelae of multiple sclerosis, similar compared to prior imaging. No evidence of acute demyelination is seen on the diffusion images. There are basal ganglia lacunar infarcts. 3. 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 There is an extra-axial calcified area in the right parietal region, most consistent with a meningioma.
--- NOTE | 2017-07-31 19:06 | Admission Certification ---
Admission Certification Certification Statement - As attending physician, I certify that at the time of - admission, based on clinical presentation, severity of - symptoms, need for further diagnostic testing and - therapeutic interventions, and risk of adverse outcomes - without in-hospital treatment, in my clinical assessment, - this patient requires an acute hospital stay for a minimum - of two nights or longer. I have also considered psychsocial - factors such as support system, advanced age, financial - issues, cognitive issues, and failed out-patient treatments, - past re-admission history, safety of patient, and lack of - compliance as applicable. Specific rationale supporting this admission is: Change in mental status, possible seizures and history of multiple sclerosis
--- NOTE | 2017-07-31 19:09 | PN- Att Addend ---
Attending Addendum Attending Brief Note 62-year-old -[place] female with history of multiple sclerosis follows with Dr. Mccloud. Daughter noticed that last night she was a little slow, this morning suddenly there was a change in mental status some rigidity on the right arm and what looked like a seizure, an ambulance was called and brought into the hospital where some seizure activity was noted patient had a CT of the head showed no bleeding. He started to relax started waking up and talking still seems a little confused by the time I saw her. Neurologist was contacted and he will come and evaluate her and also was started on anti-seizure medication. Will check blood work and monitoring with seizure precautions Laboratory Tests 07/31/17 1704: Lactic Acid 1.0 07/31/17 1626: Troponin I 0.02 07/31/17 1003: Anion Gap 15, Estimated GFR 14 L, BUN/Creatinine Ratio 15.2, Glucose 205 H, Lactic Acid 1.0, Calcium 9.1, Total Bilirubin 0.4, AST 47 H, ALT 36, Alkaline Phosphatase 118, Troponin I 0.02, Total Protein 6.4, Albumin 3.7, Globulin 2.7, Albumin/Globulin Ratio 1.4, Prolactin 7.7, PT 11.7, INR 1.12, APTT 29, CBC w Diff NO MAN DIFF REQ, RBC 4.52, MCV 79.6 L, MCH 26.4 L, MCHC 33.1, RDW 14.0, MPV 7.3 L, Gran % 75.1, Lymphocytes % 14.9 L, Monocytes % 7.6, Eosinophils % 2.0, Basophils % 0.4, Absolute Granulocytes 7.0 H, Absolute Lymphocytes 1.4, Absolute Monocytes 0.7 H, Absolute Eosinophils 0.2, Absolute Basophils 0 07/31/17 0936: Urine Opiates Screen > 4000.00 H, Methadone Screen < 40, Barbiturate Screen < 60, Ur Phencyclidine Scrn < 6.00, Amphetamines Screen < 100, U Benzodiazepines Scrn < 85, Urine Cocaine Screen < 50, Urine Cannabis Screen < 5.00, Urinalysis MOD H, Urine Color YEL, Urine Clarity HAZY H, Urine pH 6.0, Ur Specific [place] >= 1.030, Urine Protein 30 H, Urine Ketones NEG, Urine Nitrite NEG, Urine Bilirubin NEG, Urine Urobilinogen 0.2, Ur Leukocyte Esterase NEG, Ur Microscopic SEDIMENT EXAMINED, Urine RBC 3-5, Urine WBC 1-3 H, Ur Epithelial Cells MOD H, Urine Bacteria MANY H, Hyaline Casts 1-3 H, Granular Casts RARE H, Urine Hemoglobin MOD H, Urine Glucose 100 H Microbiology 07/31 0937 NASOPHARYN: Influenza Virus A & B Rapid Smear - COMP Vital Signs Date Time Temp Pulse Resp B/P B/P Pulse O2 O2 Flow FiO2 Mean Ox Delivery Rate 07/31 1817 97.4 61 16 137/74 98 Room Air 07/31 1632 97.0 63 18 101/64 98 Room Air 07/31 1421 99.6 70 18 108/68 99 Room Air 07/31 1354 97.2 78 18 100/58 98 Room Air 07/31 1120 99.6 78 18 136/79 99 Room Air 07/31 0952 99 Room Air 2.0L 07/31 0946 99.4 74 18 126/77 99 Room Air Monitor renal function closely
--- NOTE | 2017-07-31 20:52 | Cons- Neurology ---
General Information and HPI Consulting Request Date of Consult: 07/31/17 Requested By: Dagoberto Harkins MD Exam Limitations: confusion History of Present Illness: 62-year-old female seen by me after usual event at home Patient recalls little of the event Last clear recall appears to be having dinner last night She next remembers being in hospital emergency room History patient had mental status change including slurred speech and movement of upper extremities Patient did not respond to questioning Twitching movements were noted in the upper extremities There was no head trauma No clear previous similar events were documented Patient at present states that she has pain all over She believes that she bit her tongue History however is somewhat unreliable She carries a past medical history of multiple sclerosis and is on a regimen of gabapentin and tramadol and baclofen and carbamazepine She states that she had a stroke in the past but can give no further information about it Allergies/Medications Allergies: Coded Allergies: NO KNOWN ALLERGIES (NONE 07/31/17) Home Med List: Aspirin (Ecotrin*) 81 MG TABLET.DR 1 TAB PO DAILY HEART HEALTH (Reported) Atorvastatin Calcium (Lipitor) 10 MG TABLET 1 TAB PO DAILY CHOLESTEROL ( Reported) Baclofen 10 MG TABLET 1 TAB PO QPM PRN MUSCLE SPASMS (Reported) Carbamazepine 100 MG TAB.CHEW 1 TAB PO TID MS (Reported) Ergocalciferol (Vitamin D2) (Vitamin D2) 50,000 UNIT CAPSULE 1 CAP PO QMON SUPPLEMENT (Reported) Gabapentin (Neurontin) 800 MG TABLET 1 TAB PO TID NEUROPATHY (Reported) Hydrochlorothiazide 25 MG TABLET 1 TAB PO DAILY DIURETIC (Reported) Losartan Potassium (Cozaar) 50 MG TABLET 1 TAB PO DAILY HEART (Reported) Metformin HCl 500 MG TABLET 1 TAB PO QPM DIABETES (Reported) Metformin HCl 500 MG TABLET 2 TAB PO DAILY DIABETES (Reported) Ondansetron (Zofran Odt) 4 MG TAB.RAPDIS 1 TAB SL TID PRN nausea Oxymorphone HCl (Oxymorphone HCl ER) 40 MG TAB.ER.12H 1 TAB PO TID PRN PAIN ( Reported) Tramadol HCl 50 MG TABLET 2 TAB PO Q6H PRN PAIN (Reported) Current Medications: Current Medications Sig/Brittni Start time Last Medication Dose Route Stop Time Status Admin Acetaminophen 1,000 MG Q6P PRN 07/31 1430 AC IV Levetiracetam 500 MG Q12 07/31 2200 AC N/A 1 UNIT IV Levetiracetam 1,000 MG ONCE ONE 07/31 1145 DC 07/31 N/A 1 UNIT IV 07/31 1159 1230 Lorazepam 2 MG ONE ONE 07/31 0900 DC IV 07/31 0901 Lorazepam 0 .STK-MED ONE 07/31 0858 DC .ROUTE Sodium Chloride 1,000 ML Q13H 07/31 1430 AC 07/31 IV 1639 Sodium Chloride 500 ML BOLUS ONE 07/31 1400 CAN IV 07/31 1459 Sodium Chloride 1,000 ML BOLUS ONE 07/31 1100 DC 07/31 IV 07/31 1159 1119 Sodium Chloride 1,000 ML BOLUS ONE 07/31 1100 DC 07/31 IV 07/31 1159 1230 Review of Systems Review of Systems: Review of systems difficult to assess patient at present appears confused She denies headache or difficulty vision or vertigo She denies nausea vomiting or difficulty breathing She is bothered by indwelling Coleman She denies head trauma She denies recent fevers or falls Other systems reviewed unreliable Past History Travel History Traveled to [place] past 21 day No Medical History Neurological: multiple sclerosis, restless leg syndrome EENT: NONE Cardiovascular: hypertension Respiratory: NONE Gastrointestinal: NONE Hepatic: NONE Renal: INCREASED URINARY FREQUEN CY R/T MS Musculoskeletal: NONE Psychiatric: insomnia, INSOMNIA R/T RESTLESS LEG Endocrine: diabetes Blood Disorders: NONE Cancer(s): NONE LINUX SYSTEM ADMIN/Reproductive: Surgical History Surgical History: non-contributory Family History Relations & Conditions If Any: Relation not specified for: FH: diabetes in Psychosocial History Services at Home: None ETOH Use: denies use Illicit Drug Use: denies illicit drug use Exam & Diagnostic Data Vital Signs and I&O Vital Signs Date Time Temp Pulse Resp B/P B/P Pulse O2 O2 Flow FiO2 Mean Ox Delivery Rate 07/31 1817 97.4 61 16 137/74 98 Room Air 07/31 1632 97.0 63 18 101/64 98 Room Air 07/31 1421 99.6 70 18 108/68 99 Room Air 07/31 1354 97.2 78 18 100/58 98 Room Air 07/31 1120 99.6 78 18 136/79 99 Room Air 07/31 0952 99 Room Air 2.0L 07/31 0946 99.4 74 18 126/77 99 Room Air Intake & Output 07/31 1600 07/31 0800 07/31 0000 Intake Total 0 Output Total Balance 0 Intake, Oral 0 Patient 150 lb Weight Weight Estimated Measurement Method Physical Exam: Awake Confused Able to give me her age No answer when I asked her where she is Able to tell me who lives with her Heart sounds normal No carotid bruits Distal pulses intact Extraocular movements full Pupils equal reactive Fundi benign Probable visual field loss on the right No facial weakness or sensory loss Palate and tongue are midline Hearing grossly intact Tone normal both upper and lower extremities Movements left upper extremity preferential to light Asterixis both upper extremities Sensory examination to light touch intact; seems to extinguish on the right side Deep tendon reflexes 1+ bilateral Coordinative functions upper extremities grossly intact; again asterixis noted Attempted gait not made since patient is confused and has asterixis Last 48 Hours of Lab Results: Laboratory Tests 07/31 07/31 07/31 1704 1626 1003 Chemistry Sodium (137 - 145 mmol/L) 134 L Potassium (3.5 - 5.1 mmol/L) 3.5 Chloride (98 - 107 mmol/L) 93 L Carbon Dioxide (22 - 30 mmol/L) 25 Anion Gap (5 - 16) 15 BUN (7 - 17 mg/dL) 50 H Creatinine (0.5 - 1.0 mg/dL) 3.3 H Estimated GFR (>60 ml/min) 14 L BUN/Creatinine Ratio (7 - 25 %) 15.2 Glucose (65 - 99 mg/dL) 205 H Lactic Acid (0.7 - 2.1 mmol/L) 1.0 1.0 Calcium (8.4 - 10.2 mg/dL) 9.1 Total Bilirubin (0.2 - 1.3 mg/dL) 0.4 AST (14 - 36 U/L) 47 H ALT (9 - 52 U/L) 36 Alkaline Phosphatase (<127 U/L) 118 Troponin I (< 0.11 ng/ml) 0.02 0.02 Total Protein (6.3 - 8.2 g/dL) 6.4 Albumin (3.5 - 5.0 g/dL) 3.7 Globulin (1.9 - 4.2 gm/dL) 2.7 Albumin/Globulin Ratio (1.1 - 2.2 %) 1.4 Prolactin (3.0 - 18.6 ng/mL) 7.7 Coagulation PT (9.4 - 12.5 SEC) 11.7 INR (0.90 - 1.19) 1.12 APTT (25 - 37 SEC) 29 Hematology CBC w Diff NO MAN DIFF REQ WBC (4.8 - 10.8 /CUMM) 9.3 RBC (4.20 - 5.40 /CUMM) 4.52 Hgb (12.0 - 16.0 G/DL) 11.9 L Hct (37 - 47 %) 36.0 L MCV (81.0 - 99.0 FL) 79.6 L MCH (27.0 - 31.0 PG) 26.4 L MCHC (33.0 - 37.0 G/DL) 33.1 RDW (11.5 - 14.5 %) 14.0 Plt Count (130 - 400 /CUMM) 398 MPV (7.4 - 10.4 FL) 7.3 L Gran % (42.2 - 75.2 %) 75.1 Lymphocytes % (20.5 - 51.1 %) 14.9 L Monocytes % (1.7 - 9.3 %) 7.6 Eosinophils % (0 - 5 %) 2.0 Basophils % (0.0 - 2.0 %) 0.4 Absolute Granulocytes (1.4 - 6.5 /CUMM) 7.0 H Absolute Lymphocytes (1.2 - 3.4 /CUMM) 1.4 Absolute Monocytes (0.10 - 0.60 /CUMM) 0.7 H Absolute Eosinophils (0.0 - 0.7 /CUMM) 0.2 Absolute Basophils (0.0 - 0.2 /CUMM) 0 07/31 0936 Toxicology Urine Opiates Screen (>2000 NG/ML) > 4000.00 H Methadone Screen (>300 NG/ML) < 40 Barbiturate Screen (>200 NG/ML) < 60 Ur Phencyclidine Scrn (>25 NG/ML) < 6.00 Amphetamines Screen (>1000 NG/ML) < 100 U Benzodiazepines Scrn (>200 NG/ML) < 85 Urine Cocaine Screen (>300 NG/ML) < 50 Urine Cannabis Screen (>50 NG/ML) < 5.00 Urines Urinalysis MOD H Urine Color (YEL,AMB,STR) YEL Urine Clarity (CLEAR) HAZY H Urine pH (5.0 - 8.0) 6.0 Ur Specific [place] (1.001 - 1.035) >= 1.030 Urine Protein (NEG,<30 MG/DL) 30 H Urine Ketones (NEG) NEG Urine Nitrite (NEG) NEG Urine Bilirubin (NEG) NEG Urine Urobilinogen (0.1 - 1.0 EU/dl) 0.2 Ur Leukocyte Esterase (NEG) NEG Ur Microscopic SEDIMENT EXAMINED Urine RBC (0 - 5 /HPF) 3-5 Urine WBC (0 - 2 /HPF) 1-3 H Ur Epithelial Cells (NONE,FEW) MOD H Urine Bacteria (NEG/NONE) MANY H Hyaline Casts (0/LPF) 1-3 H Granular Casts (NONE /LPF) RARE H Urine Hemoglobin (NEG) MOD H Urine Glucose (N MG/DL) 100 H Imaging/Other Studies: MRI: IMPRESSION: 1. There are no acute bleeds or infarcts. 2. There are scattered areas of and FLAIR signal abnormality in the white matter, most consistent with sequelae of multiple sclerosis, similar compared to prior imaging. No evidence of acute demyelination is seen on the diffusion images. There are basal ganglia lacunar infarcts. 3. 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 There is an extra-axial calcified area in the right parietal region, most consistent with a meningioma. Assessment/Plan Assessment: Acute encephalopathy Possible seizure Levetiracetam 500 mg every 12 until more information is available History of multiple sclerosis, not active Recommendations: Withhold most sedating medications Obtain serum ammonia Obtain electroencephalogram Consult Acknowledgment - Thank you for your consult request.
[2017-07-31 22:23] VITALS: BP 110/68
[2017-08-01 07:12] VITALS: BP 122/66
[2017-08-01 08:15] LABS: ABSOLUTE BASOPHIL COUNT 0.1 /CUMM (0.0-0.2); ABSOLUTE EOSINOPHIL COUNT 0.2 /CUMM (0.0-0.7); ABSOLUTE LYMPH COUNT 1.4 /CUMM (1.2-3.4); ABSOLUTE MONOCYTE COUNT 0.6 /CUMM (0.10-0.60); BASOPHIL % 0.6 % (0.0-2.0); EOSINOPHIL % 2.4 % (0-5); GRANULOCYTE % 72.5 % (42.2-75.2); HEMATOCRIT 32.9 % (37-47); MEAN CORPUSCULAR HGB 26.4 PG (27.0-31.0); MEAN CORPUSCULAR HGB CONC 32.6 G/DL (33.0-37.0); MEAN CORPUSCULAR VOLUME 81.2 FL (81.0-99.0); MEAN PLATELET VOLUME 7.6 FL (7.4-10.4); PLATELET COUNT 348 /CUMM (130-400); RBC DISTRIBUTION WIDTH 14.5 % (11.5-14.5); RED BLOOD CELL CT 4.06 /CUMM (4.20-5.40); WHITE BLOOD CELL COUNT 8.3 /CUMM (4.8-10.8)
--- NOTE | 2017-08-01 11:50 | PN- Att Addend ---
Attending Addendum Attending Brief Note Patient looking and feeling better, walk to the bathroom to clean herself. She is brighter and talking Vital signs are stable, no fever. Almost to baseline but her mental status. Patient was seen by neurology and his impression was acute encephalopathy possible seizure recommended to continue the Keppra formation is available of the encephalogram. He thinks the MS is not active, but will have Dr. Mccloud check the patient , he knows her very well. 24 TOTALS 08/01 0000 07/31 0000 Intake Total 75 Output Total 2100 Balance -2024 Intake, IV 75 Intake, Oral 0 Output, Urine 2100 Patient 150 lb Weight Weight Estimated Measurement Method Current Medications Sig/Brittni Start time Last Medication Dose Route Stop Time Status Admin Acetaminophen 1,000 MG Q6P PRN 07/31 1430 AC IV Dextrose/Sodium 1,000 ML Q13H 08/01 0415 AC 08/01 Chloride IV 0411 Influenza Virus 0.5 ML ONCE ONE 08/01 1000 DC Vaccine IM 08/01 1001 Levetiracetam 500 MG Q12 07/31 2200 AC 08/01 N/A 1 UNIT IV 1101 Levetiracetam 1,000 MG ONCE ONE 07/31 1145 DC 07/31 N/A 1 UNIT IV 07/31 1159 1230 Patient Medication 1 ED ONE ONE 08/01 1200 AC Teaching ED 08/01 1201 Sodium Chloride 1,000 ML Q13H 07/31 1430 DC 07/31 IV 1639 Sodium Chloride 500 ML BOLUS ONE 07/31 1400 CAN IV 07/31 1459 Sodium Chloride 1,000 ML BOLUS ONE 07/31 1100 DC 07/31 IV 07/31 1159 1119 Sodium Chloride 1,000 ML BOLUS ONE 07/31 1100 DC 07/31 IV 14 1159 1230 Laboratory Tests 08/01/17 0640: Anion Gap 12, Estimated GFR > 60, BUN/Creatinine Ratio 26.7 H, Triglycerides 162 H, Cholesterol 124, LDL Cholesterol, Calc 63 L, HDL Cholesterol 29 L, Cholesterol/HDL Ratio 4.3 H 08/01/17 0640: Ammonia 11, CBC w Diff NO MAN DIFF REQ, RBC 4.06 L, MCV 81.2, MCH 26.4 L, MCHC 32.6 L, RDW 14.5, MPV 7.6, Gran % 72.5, Lymphocytes % 16.9 L, Monocytes % 7.6, Eosinophils % 2.4, Basophils % 0.6, Absolute Granulocytes 6.0, Absolute Lymphocytes 1.4, Absolute Monocytes 0.6, Absolute Eosinophils 0.2, Absolute Basophils 0.1 07/31/17 1704: Lactic Acid 1.0 07/31/17 1626: Troponin I 0.02 07/31/17 1003: Anion Gap 15, Estimated GFR 14 L, BUN/Creatinine Ratio 15.2, Glucose 205 H, Lactic Acid 1.0, Calcium 9.1, Total Bilirubin 0.4, AST 47 H, ALT 36, Alkaline Phosphatase 118, Troponin I 0.02, Total Protein 6.4, Albumin 3.7, Globulin 2.7, Albumin/Globulin Ratio 1.4, Prolactin 7.7, PT 11.7, INR 1.12, APTT 29, CBC w Diff NO MAN DIFF REQ, RBC 4.52, MCV 79.6 L, MCH 26.4 L, MCHC 33.1, RDW 14.0, MPV 7.3 L, Gran % 75.1, Lymphocytes % 14.9 L, Monocytes % 7.6, Eosinophils % 2.0, Basophils % 0.4, Absolute Granulocytes 7.0 H, Absolute Lymphocytes 1.4, Absolute Monocytes 0.7 H, Absolute Eosinophils 0.2, Absolute Basophils 0 07/31/17 0936: Urine Opiates Screen > 4000.00 H, Methadone Screen < 40, Barbiturate Screen < 60, Ur Phencyclidine Scrn < 6.00, Amphetamines Screen < 100, U Benzodiazepines Scrn < 85, Urine Cocaine Screen < 50, Urine Cannabis Screen < 5.00, Urinalysis MOD H, Urine Color YEL, Urine Clarity HAZY H, Urine pH 6.0, Ur Specific [place] >= 1.030, Urine Protein 30 H, Urine Ketones NEG, Urine Nitrite NEG, Urine Bilirubin NEG, Urine Urobilinogen 0.2, Ur Leukocyte Esterase NEG, Ur Microscopic SEDIMENT EXAMINED, Urine RBC 3-5, Urine WBC 1-3 H, Ur Epithelial Cells MOD H, Urine Bacteria MANY H, Hyaline Casts 1-3 H, Granular Casts RARE H, Urine Hemoglobin MOD H, Urine Glucose 100 H Microbiology 07/31 09 NASOPHARYN: Influenza Virus A & B Rapid Smear - COMP Vital Signs Date Time Temp Pulse Resp B/P B/P Pulse O2 O2 Flow FiO2 Mean Ox Delivery Rate 08/01 0712 97.8 66 18 122/66 96 Room Air 07/31 2223 98.8 63 18 110/68 98 07/31 2118 98.9 72 16 118/73 96 Room Air 07/31 1817 97.4 61 16 137/74 98 Room Air 07/31 1632 97.0 63 18 101/64 98 Room Air 07/31 1421 99.6 70 18 108/68 99 Room Air 07/31 1354 97.2 78 18 100/58 98 Room Air
--- NOTE | 2017-08-01 14:15 | PN- Housestaff ---
Subjective Follow-up For: Seizure B/L lower extrimity weakness related to MS Complaints: no complaints Tele-Events Since Last Visit: SR, rate 60-70 no events Subjective: Patient seen and examined, Awake, alert and oriented x3, no acute distress, PT at bedside for evaluation. She denies any chest pain, SOB, headache. She was initially uncooperative and upset for unclear reason, I explained for her that yesterday she had a seizure BUT she didn't remember any thing about the events. Later she became calm and cooperative. Vitals stable Review of Systems Constitutional: Reports: no symptoms. EENTM: Reports: no symptoms. Cardiovascular: Reports: no symptoms. Respiratory: Reports: no symptoms. Gastrointestinal: Reports: no symptoms. Objective Last 24 Hrs of Vital Signs/I&O Vital Signs Date Time Temp Pulse Resp B/P B/P Pulse O2 O2 Flow FiO2 Mean Ox Delivery Rate 08/01 0712 97.8 66 18 122/66 96 Room Air 07/31 2223 98.8 63 18 110/68 98 07/31 2118 98.9 72 16 118/73 96 Room Air 07/31 1817 97.4 61 16 137/74 98 Room Air 07/31 1632 97.0 63 18 101/64 98 Room Air 07/31 1421 99.6 70 18 108/68 99 Room Air Intake & Output 08/01 1600 08/01 0800 08/01 0000 Intake Total 600 75 Output Total 161 394 8386 Balance -650 350 Intake, IV 600 75 Intake, Oral 0 Output, Urine 742 748 2663 Patient 150 lb Weight Physical Exam General Appearance: Alert, Oriented X3, No Acute Distress HEENT: Atraumatic, PERRLA, EOMI, Mucous Membr. moist/pink Neck: Supple, No JVD Cardiovascular: Regular Rate, Normal S1, Normal S2, No Murmurs Lungs: Clear to Auscultation, Normal Air Movement Abdomen: Normal Bowel Sounds, Soft, No Tenderness Neurological: Normal Speech, Sensation Intact, Decrease strength in B/L lower extrimity. Extremities: Normal Pulses Current Medications: Current Medications Sig/Brittni Start time Last Medication Dose Route Stop Time Status Admin Acetaminophen 1,000 MG Q6P PRN 07/31 1430 AC IV Atorvastatin Calcium 10 MG DAILY 08/01 1409 AC PO Dextrose/Sodium 1,000 ML Q13H 08/01 0415 AC 08/01 Chloride IV 0411 Influenza Virus 0.5 ML ONCE ONE 08/01 1000 DC Vaccine IM 08/01 1001 Levetiracetam 500 MG Q12 07/31 2200 AC 08/01 N/A 1 UNIT IV 1101 Patient Medication 1 ED ONE ONE 08/01 1400 DC Teaching ED 08/01 1401 Patient Medication 1 ED ONE ONE 08/01 1200 DC Teaching ED 08/01 1201 Sodium Chloride 1,000 ML Q13H 07/31 1430 DC 07/31 IV 1639 Sodium Chloride 500 ML BOLUS ONE 07/31 1400 CAN IV 07/31 1459 Last 24 Hrs of Lab/Danis Results Last 24 Hrs of Labs/Mics: Laboratory Tests 08/01/17 0640: Anion Gap 12, Estimated GFR > 60, BUN/Creatinine Ratio 26.7 H, Triglycerides 162 H, Cholesterol 124, LDL Cholesterol, Calc 63 L, HDL Cholesterol 29 L, Cholesterol/HDL Ratio 4.3 H 08/01/17 0640: Ammonia 11, CBC w Diff NO MAN DIFF REQ, RBC 4.06 L, MCV 81.2, MCH 26.4 L, MCHC 32.6 L, RDW 14.5, MPV 7.6, Gran % 72.5, Lymphocytes % 16.9 L, Monocytes % 7.6, Eosinophils % 2.4, Basophils % 0.6, Absolute Granulocytes 6.0, Absolute Lymphocytes 1.4, Absolute Monocytes 0.6, Absolute Eosinophils 0.2, Absolute Basophils 0.1 07/31/17 1704: Lactic Acid 1.0 07/31/17 1626: Troponin I 0.02 Assessment/Plan Assessment: is a 62 yo lady with PMHx. of MS, type 2 diabetes, hypertension and dyslipidemia presented with chief complaint slurred speech, twitching movement of her arms, altered mental status admitted for new onset seizure, possible stroke Vitals, examination, labs, and imaging as above Assessment: #New onset seizure, with postictal status #History of MS #History of diabetes #History of hypertension #History of hyperlipidemia #Urinary retention per Ct abdomen/pelvis finding Plan: -MRI showed no acute finding, There is an extra-axial calcified area in the right parietal region, most consistent with a meningioma. -Patient received a loading dose of Keppra by ED, we will start starting dose of 500 mg twice a day -She passed swallow eval, will start diet, will hold on home meds for now -EEG was ordered with follow-up on the results -Bilateral carotid ultrasonography with no significant finding -Neuro check, NIHA scalesoc -Accu-Chek for blood sugar -PT/OT/ST was ordered. -Kidney function return to the baseline, will remove john ALPS for DVT prophylaxis She is full code Problem List: 1. Diabetes mellitus 2. Seizure 3. Multiple sclerosis Pain Ratin Pain Location: - Pain Goal: Remain pain free (-) Pain Plan: - Tomorrow's Labs & Rationales: - DVT/Prophylaxis: mechanical, pharmacological
[2017-08-01 14:22] VITALS: BP 102/60
--- NOTE | 2017-08-01 20:52 | ELECTROENCEPHALOGRAM REPORT ---
Electroencephalogram Report Electroencephalogram Results Date of service: 08/01/17 Attending MD: Dagoberto Harkins MD Reading Interventionist: Jose M Nolan EEG Number: [id number] Test Utilizes: 10-20 system, 21 lead 18 channel digital recording Pertinent Hx/Physical/Neuro Findings/Clin Diagnosis: mental status change Inpatient Medications: Current Medications Sig/Brittni Start time Last Medication Dose Route Stop Time Status Admin Acetaminophen 1,000 MG Q6P PRN 07/31 1430 AC IV Atorvastatin Calcium 10 MG DAILY 08/01 1409 AC 08/01 PO 1815 Dextrose/Sodium 1,000 ML Q13H 08/01 0415 DC 08/01 Chloride IV 0411 Heparin Sodium 5,000 UNIT Q8 08/01 2200 AC (Porcine) SC Influenza Virus 0.5 ML ONCE ONE 08/01 1000 DC Vaccine IM 08/01 1001 Insulin Aspart 0 TIDAC 08/01 1700 AC 08/01 SC 1815 Levetiracetam 500 MG Q12 07/31 2200 AC 08/01 N/A 1 UNIT IV 1101 Patient Medication 1 ED ONE ONE 08/01 1400 DC 08/01 Teaching ED 08/01 1401 1450 Patient Medication 1 ED ONE ONE 08/01 1200 DC 08/01 Teaching ED 08/01 1201 1450 Potassium Chloride 60 MEQ ONCE ONE 08/01 1530 DC 08/01 PO 08/01 1531 1816 Sodium Chloride 1,000 ML Q13H 07/31 1430 DC 07/31 IV 1639 Tramadol HCl 50 MG ONCE ONE 08/01 1900 DC 08/01 PO 08/01 1901 1853 Interpretation: Background is 8 cps activity posteriorly during drowsy state 2-3 cps activity is seen frontally photic stom: no abnormalities no epileptiform activity noted Impression: normal EEG in wake and drowsy states
[2017-08-01 22:58] VITALS: BP 122/78
[2017-08-02 06:55] VITALS: BP 148/80
--- NOTE | 2017-08-02 08:05 | PN- Housestaff ---
Subjective Follow-up For: -Seizure -Hx. of MS -DM Complaints: no complaints Subjective: seen and examind today, much better, no acute distress Review of Systems Constitutional: Reports: no symptoms. Cardiovascular: Reports: no symptoms. Respiratory: Reports: no symptoms. Gastrointestinal: Reports: no symptoms. Objective Last 24 Hrs of Vital Signs/I&O Vital Signs Date Time Temp Pulse Resp B/P B/P Pulse O2 O2 Flow FiO2 Mean Ox Delivery Rate 08/02 0655 99.3 64 20 148/80 96 Room Air 08/02 0130 99.4 08/01 2315 100.1 08/01 2258 100.1 67 16 122/78 98 Room Air 08/01 1422 99.8 78 16 102/60 98 Room Air Intake & Output 08/02 1600 08/02 0800 08/02 0000 Intake Total 200 Output Total Balance 200 Intake, IV 200 Number 1 Bowel Movements Physical Exam General Appearance: Alert, Oriented X3, Cooperative, No Acute Distress Current Medications: Current Medications Sig/Brittni Start time Last Medication Dose Route Stop Time Status Admin Acetaminophen 1,000 MG Q6P PRN 07/31 1430 AC 08/01 IV 2315 Aspirin Buffered 81 MG DAILY 08/02 1000 AC PO Atorvastatin Calcium 10 MG DAILY 08/01 1409 AC 08/01 PO 1815 Dextrose/Sodium 1,000 ML Q13H 08/01 0415 DC 08/01 Chloride IV 0411 Heparin Sodium 5,000 UNIT Q8 08/01 2200 AC 08/02 (Porcine) [place] 0638 Hydrochlorothiazide 25 MG DAILY 08/02 1000 AC PO Insulin Aspart 0 TIDAC 08/01 1700 AC 08/02 SC 0828 Levetiracetam 500 MG Q12 07/31 2200 AC 08/01 N/A 1 UNIT IV 2206 Losartan Potassium 50 MG DAILY 08/02 1000 AC PO Patient Medication 1 ED ONE ONE 08/01 1400 DC 08/01 Teaching ED 08/01 1401 1450 Patient Medication 1 ED ONE ONE 08/01 1200 DC 08/01 Teaching ED 08/01 1201 1450 Potassium Chloride 60 MEQ ONCE ONE 08/01 1530 DC 08/01 PO 08/01 1531 1816 Tramadol HCl 100 MG Q6H PRN 08/02 0945 AC PO Tramadol HCl 50 MG ONCE ONE 08/01 1900 DC 08/01 PO 08/01 1901 1853 Assessment/Plan Assessment: is a 62 yo lady with PMHx. of MS, type 2 diabetes, hypertension and dyslipidemia presented with chief complaint slurred speech, twitching movement of her arms, altered mental status admitted for new onset seizure, possible stroke Vitals, examination, labs, and imaging as above Assessment: #New onset seizure, with postictal status #History of MS #History of diabetes #History of hypertension #History of hyperlipidemia #Urinary retention per Ct abdomen/pelvis finding Plan: -MRI showed no acute finding, There is an extra-axial calcified area in the right parietal region, most consistent with a meningioma. -Patient received a loading dose of Keppra by ED, we will start starting dose of 500 mg twice a day -She passed swallow eval, will start diet, will resume home meds today except the one causing sedation -EEG normal -Bilateral carotid ultrasonography with no significant finding -Neuro check, NIHA scalesoc -Accu-Chek for blood sugar -PT/OT/ST was ordered. -Kidney function return to the baseline, will remove john ALPS for DVT prophylaxis She is full code Problem List: 1. Multiple sclerosis 2. Weakness Pain Ratin Pain Location: - Pain Goal: Remain pain free Pain Plan: - Tomorrow's Labs & Rationales: - DVT/Prophylaxis: mechanical, pharmacological
[2017-08-02] MEDS ORDERED: KEPPRA500 M1 PO (10:28)
--- NOTE | 2017-08-02 10:31 | Patient Discharge Instructions ---
Discharge Instructions General Discharge Information You were seen/treated for: -FOLLOW UP WITH YOUR PCP OUTPATIENT -FOLLOW UP WITH YOUR NEUROLOGIST AN OUTPATIENT -TAKE MEDICATIONS PRESCRIBED Acute Coronary Syndrome Inclusion Criteria At DC or during hospital stay patient has or had the following: ACS DIAGNOSIS No Discharge Core Measures Meds if any: Prescribed or Continued at Discharge Meds if any: NOT Prescribed or Continued at Discharge Congestive Heart Failure Inclusion Criteria At DC or during hospital stay patient has or had the following: CHF DIAGNOSIS No Discharge Core Measures Meds if any: Prescribed or Continued at Discharge Meds if any: NOT Prescribed or Continued at Discharge Cerebrovascular accident Inclusion Criteria At DC or during hospital stay patient has or had the following: CVA/TIA Diagnosis No Discharge Core Measures Meds if any: Prescribed or Continued at Discharge Meds if any: NOT Prescribed or Continued at Discharge Venous thromboembolism Inclusion Criteria VTE Diagnosis No VTE Type NONE VTE Confirmed by (Test) NONE Discharge Core Measures - Per Current guidelines, there needs to be overlap - treatment for the first 5 days of Warfarin therapy. - If discharged on Warfarin prior to 5 days of - overlap therapy, the patient will need to be - assessed for post discharge needs including - *Post discharge parental anticoagulation - *Warfarin and/or parental anticoagulation education - *Follow up date to check INR post discharge At least 5 days overlap therapy as Inpatient No Meds if any: Prescribed or Continued at Discharge Note: Overlap Therapy is Warfarin and Anticoagulant Meds if any: NOT Prescribed or Continued at Discharge
--- NOTE | 2017-08-02 11:03 | PN- Att Addend ---
Attending Addendum Attending Brief Note Patient looking and feeling much better mental status back to baseline no apparent seizures vital signs are stable temp max 99 4 with no new changes on physical patient had her EEG. After checked by Dr. Mccloud can be discharged and follow with home care, and follow with me in the office. Intake & Output 08/02 1600 08/02 0400 08/01 1600 08/01 0400 07/31 1600 07/31 0400 Intake Total 200 1120 75 0 Output Total 1600 2100 Balance 200 -480 -2025 0 Intake, IV 200 600 75 Intake, Oral 520 0 Number 1 Bowel Movements Output, Urine 1600 2100 Patient 150 lb 150 lb Weight Weight Estimated Measurement Method Current Medications Sig/Brittni Start time Last Medication Dose Route Stop Time Status Admin Acetaminophen 1,000 MG Q6P PRN 07/31 1430 AC 08/01 IV 2315 Aspirin Buffered 81 MG DAILY 08/02 1000 AC PO Atorvastatin Calcium 10 MG DAILY 08/01 1409 AC 08/02 PO 1054 Dextrose/Sodium 1,000 ML Q13H 08/01 0415 DC 08/01 Chloride IV 0411 Heparin Sodium 5,000 UNIT Q8 08/01 2200 AC 08/02 (Porcine) SC 0638 Hydrochlorothiazide 25 MG DAILY 08/02 1000 AC PO Insulin Aspart 0 TIDAC 08/01 1700 AC 08/02 SC 0828 Levetiracetam 500 MG Q12 07/31 2200 AC 08/02 N/A 1 UNIT IV 1054 Losartan Potassium 50 MG DAILY 08/02 1000 AC PO Patient Medication 1 ED ONE ONE 08/01 1400 DC 08/01 Teaching ED 08/01 1401 1450 Patient Medication 1 ED ONE ONE 08/01 1200 DC 08/01 Teaching ED 08/01 1201 1450 Potassium Chloride 60 MEQ ONCE ONE 08/01 1530 DC 08/01 PO 08/01 1531 1816 Tramadol HCl 100 MG Q6H PRN 08/02 0945 AC PO Tramadol HCl 50 MG ONCE ONE 08/01 1900 DC 08/01 PO 08/01 1901 1853 Laboratory Tests 08/01/17 0640: Anion Gap 12, Estimated GFR > 60, BUN/Creatinine Ratio 26.7 H, Triglycerides 162 H, Cholesterol 124, LDL Cholesterol, Calc 63 L, HDL Cholesterol 29 L, Cholesterol/HDL Ratio 4.3 H 08/01/17 0640: Ammonia 11, CBC w Diff NO MAN DIFF REQ, RBC 4.06 L, MCV 81.2, MCH 26.4 L, MCHC 32.6 L, RDW 14.5, MPV 7.6, Gran % 72.5, Lymphocytes % 16.9 L, Monocytes % 7.6, Eosinophils % 2.4, Basophils % 0.6, Absolute Granulocytes 6.0, Absolute Lymphocytes 1.4, Absolute Monocytes 0.6, Absolute Eosinophils 0.2, Absolute Basophils 0.1 07/31/17 1704: Lactic Acid 1.0 07/31/17 1626: Troponin I 0.02 07/31/17 1003: Anion Gap 15, Estimated GFR 14 L, BUN/Creatinine Ratio 15.2, Glucose 205 H, Lactic Acid 1.0, Calcium 9.1, Total Bilirubin 0.4, AST 47 H, ALT 36, Alkaline Phosphatase 118, Troponin I 0.02, Total Protein 6.4, Albumin 3.7, Globulin 2.7, Albumin/Globulin Ratio 1.4, Prolactin 7.7, PT 11.7, INR 1.12, APTT 29, CBC w Diff NO MAN DIFF REQ, RBC 4.52, MCV 79.6 L, MCH 26.4 L, MCHC 33.1, RDW 14.0, MPV 7.3 L, Gran % 75.1, Lymphocytes % 14.9 L, Monocytes % 7.6, Eosinophils % 2.0, Basophils % 0.4, Absolute Granulocytes 7.0 H, Absolute Lymphocytes 1.4, Absolute Monocytes 0.7 H, Absolute Eosinophils 0.2, Absolute Basophils 0 07/31/17 0936: Urine Opiates Screen > 4000.00 H, Methadone Screen < 40, Barbiturate Screen < 60, Ur Phencyclidine Scrn < 6.00, Amphetamines Screen < 100, U Benzodiazepines Scrn < 85, Urine Cocaine Screen < 50, Urine Cannabis Screen < 5.00, Urinalysis MOD H, Urine Color YEL, Urine Clarity HAZY H, Urine pH 6.0, Ur Specific [place] >= 1.030, Urine Protein 30 H, Urine Ketones NEG, Urine Nitrite NEG, Urine Bilirubin NEG, Urine Urobilinogen 0.2, Ur Leukocyte Esterase NEG, Ur Microscopic SEDIMENT EXAMINED, Urine RBC 3-5, Urine WBC 1-3 H, Ur Epithelial Cells MOD H, Urine Bacteria MANY H, Hyaline Casts 1-3 H, Granular Casts RARE H, Urine Hemoglobin MOD H, Urine Glucose 100 H Microbiology 07/31 1000 BLOOD: Blood Culture - RES 07/31 936 NASOPHARYN: Influenza Virus A & B Rapid Smear - COMP 07/31 935 URINE ROUT: Urine Culture - COMP 07/31 935 BLOOD: Blood Culture - RES Microbiology 07/31 1000 BLOOD: Blood Culture - RES 07/31 936 NASOPHARYN: Influenza Virus A & B Rapid Smear - COMP 07/31 935 URINE ROUT: Urine Culture - COMP 07/31 935 BLOOD: Blood Culture - RES
[2017-08-02 13:09] VITALS: BP 140/84
== END 2017-08-02 14:00 | disposition home health service (06) | DRG 100 ==
LOC: ERH 08:45 → ERHI 10:53 → 1NO 10:53 → ENRESERV 20:27 → ENTRNSPT 21:35 → EDTRNSPTSTS 21:47 → 1NO 22:02 → CMPTRNSPT 22:06 → ENPENDDIS 08-02 10:31 → 1NO 08-02 14:00
PROVIDERS: Emergency Medicine; Student in an Organized Health Care Education/Training Program
DX: R56.9 Unspecified convulsions (principal); G93.40 Encephalopathy, unspecified; N17.9 Acute kidney failure, unspecified; R47.01 Aphasia; G35 Multiple sclerosis; G25.81 Restless legs syndrome; E78.5 Hyperlipidemia, unspecified; R33.9 Retention of urine, unspecified; I10 Essential (primary) hypertension; E11.9 Type 2 diabetes mellitus without complications; Z79.84 Long term (current) use of oral hypoglycemic drugs
CPT/HCPCS: 1NSP; 70551; 36415; 74174; 80307; 81001; 82436; 87040; 87086; 87804; 87804-59; 93005; 93010; 95816; 97110-GO; 97116-GO; 97161-GP; 97166-GO; 97530-GO; J0131; J1644; J1953; J7040; J7042; Q2036; Q9965